=== PATIENT | female | born 1950 | race Caucasian/White ===

== ENCOUNTER 2017-05-21 10:00 | Outpatient (RCR) | payer MEDICARE, OTHER, SELFPAY ==
--- NOTE | 2017-04-25 16:49 | HP.PTEVAL_ITS ---
Patient's Visit Information JASE FARRIS is a 66 year old F referred to Physical Therapy by Sudheer Cordero DO with a diagnosis of C56,C67 LEFT SIDED RADICULOPATHY. Date of Evaluation: 04/25/17 Physical Therapist: Poonam Sahu - Visit Plan Frequency: 2-3x /Week Duration: 4-6 Weeks Plan: CERVICAL AND LEFT SHOULDER US AND STM. POSTURE CORRECTION/STRENGTHENING. CERVICAL AND LEFT SHOULDER A/AA ROM. LEFT UE STRENGTHEING. CERVICAL ISOMETRICS. - Subjective Subjective: Work/Leisure: RETIRED. Disability: NO. Present symptoms: CEZAR NECK PAIN LEFT > RIGHT, LEFT ARM. NO NUMBNESS OR TINGLING. PATIENT REPORTS HER LEFT SHOULDER IS CLICKING AND DR. CORDERO TOLD HER IT IS PROBABLY FROM COMPENSATING WITH THE RIGHT ARM. Present since: ABOUT 6 MONTHS AGO. Pain Scale : WORST 8/10, LEAST 5/10. Currently: 7/10. WORSENING. Commenced as a result of: NO APPARENT REASON. Symptoms at onset: NECK. Worse: EVERYTHING. Better: HOT SHOWER HELPS A LITTLE BUT NOTHING ELSE. Disturbed sleep: YES. Previous history/Previous treatment: NO CHIROPRACTOR. NO NECK OR SHOULDER SURGERY. CORTISONE INJECTION LEFT SHOULDER ONCE AND DX OF DDD. WENT TO ED ABOUT A MONTH AGO AND THEN FOLLOW UP WITH DR. CORDERO. Gait: NO FALLS. INTERMITTENT CLUTSY DOESN'T FEEL STABLE AND FEET FEEL HEAVY. THIS HAS BEEN OCCURING A FEW WEEKS BUT ONLY SINCE TOOK FIRST DOSE TRAMADOL. Accidents: NO. Unexplained weight loss: NO. Imaging: MULTILEVEL DEGENERATIVE CHANGES ON NECK X-RAY. CAT SCAN PENDING. PATIENT REFUSES MRI. PMH: SPLEENECTOMY AGE 20. HEART CONDITION - HEART SKIPS. COPD. HX OF LEFT SHOULDER PAIN 2013. OTHER : PATIENT REPORTS IT IS A BIG EFFORT TO TAKE A SHOWER AND DO HER HAIR. SHE HASN'T BEEN ABLE TO LIFT HER LEFT ARM SINCE ABOUT 04/09/17. STATES DR. CORDERO SAID IT IS COMING FROM HER NECK AND NOT HER SHOULDER. STATES DR. CORDERO TOLD HER THERE ISN'T ANYTHING HE CAN DO FOR HER AND SHE NEEDS TO GO TO A NECK SPECIALIST. STATES DR. CORDERO TOLD HER SHE COULD TRY PT AND PAIN MGMT FOR INJECTIONS BUT THEY ARE ALL [place]. STATES ER DOCTOR TOLD HER SHE NEEDS NECK SURGERY. - Objective Sitting Posture: POOR. Active Correction of posture: NE. Motor deficit: RIGHT UE WFL BUT LEFT SHOULDER IS VERY WEAK. 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 LEFT ELBOW FLEX 4 -/5, ELBOW EXT 4/5. Sensory deficit: CEZAR UE LIGHT TOUCH SENSATION IS INTACT AND SYMMETRICAL. ROM deficit: 60 DEG ACTIVE LEFT SHOULDER FLEX AND 40 DEG ACTIVE ABD. FULL PROM LEFT SHOULDER. Reflexes: UNABLE TO ELICIT CEZAR UE DTR'S BUT PATIENT VERY GUARDED AND COLD. CERVICAL MVMT LOSS: FLEX - MIN, PRO - NIL, EXT - MOD TO RAFFAELE, RET - RAFFAELE, RIGHT ROT - MIN, LEFT ROT - MOD, RIGHT SB - MOD, LEFT SB - MOD TO RAFFAELE. Postural strength: POOR. Palpation: PATIENT IS NOT ACUTELY TENDER OVER THORACIC OR CERVICAL SPINOUS PROCESS'S. SHE HAS LEFT CERVICAL MUSCULATURE TIGHTNESS GREATER THAN RIGHT BUT SHE IS VERY TENDER IN THE LATERAL SHOULDER REGION DISTAL TO THE AC JOINT. OTHER: CERVICAL TX TESTING HAS NO EFFECT. - Goals Goal 1:: DECREASE C/O NECK PAIN Goal Time Frame: 4-6 Weeks Goal 2:: DECREASE C/O LEFT UE SX'S. Goal Time Frame: 4-6 Weeks Goal 3:: IMPROVE SITTING, STANDING, WALKING, REACHING, PUSHING, PULLING, LIFTING , ADL AND LEISURE FUNCTION Goal Time Frame: 4-6 Weeks Goal 4:: INSTRUCT IN PROPHYLAXIS - Rehabilitation Potential Rehabilitation Potential: Fair - Anticipated Interventions Patient/Client Instruction: Educate patient on: Condition, Plan of Care, Risk Factors, Benefits of Fitness Program For the Purpose of:: To improve self management Therapeutic Exercise to Include: Strength training, Postural training, Flexibilty training, Active ROM, Scapular Strength/Stabilization For the Purpose of:: To improve ability of physical actions for home/community/ work/leisure Manual Therapy Techniques to Include: Soft tissue mobilization For the Purpose of:: To decrease pain, To decrease swelling/inflammation, To increase ROM Ultrasound (thermal/non thermal): Yes For the Purpose of:: To decrease pain, To decrease swelling/inflammation Thank you for the opportunity to evaluate your patient. For Medicare and Medicare HMO plans, please review the plan of care and approve it. It will need to be FAXED BACK to us at [phone] for Medicare purposes. Please let me know if there are questions or concerns regarding this plan of care. Physician Signature: Date:
--- NOTE | 2017-05-14 13:57 | HP.PTREVAL_ITS ---
Sudheer Cordero, DO, It has been my pleasure to treat JASE FARRIS over the last 7 visits for C56,C67 LEFT SIDED RADICULOPATHY. Please see the progress note below for an update on the physical therapy plan of care! Subjective: Cont second half of rx session. Objective/Function: Pt did fairly well with ex's - minor c/o with most. States she is not doing her HEP. Plan Plan: CERVICAL AND LEFT SHOULDER US AND STM. POSTURE CORRECTION/STRENGTHENING. CERVICAL AND LEFT SHOULDER A/AA ROM. LEFT UE STRENGTHEING. CERVICAL ISOMETRICS. Goals Goal 1:: DECREASE C/O NECK PAIN Goal Time Frame: 4-6 Weeks Goal 2:: DECREASE C/O LEFT UE SX'S. Goal Time Frame: 4-6 Weeks Goal 3:: IMPROVE SITTING, STANDING, WALKING, REACHING, PUSHING, PULLING, LIFTING , ADL AND LEISURE FUNCTION Goal Time Frame: 4-6 Weeks Goal 4:: INSTRUCT IN PROPHYLAXIS Anticipated Interventions Patient/Client Instruction: Educate patient on: Condition, Plan of Care, Risk Factors, Benefits of Fitness Program For the Purpose of:: To improve self management Therapeutic Exercise to Include: Strength training, Postural training, Flexibilty training, Active ROM, Scapular Strength/Stabilization For the Purpose of:: To improve ability of physical actions for home/community/ work/leisure Manual Therapy Techniques to Include: Soft tissue mobilization For the Purpose of:: To decrease pain, To decrease swelling/inflammation, To increase ROM Ultrasound (thermal/non thermal): Yes For the Purpose of:: To decrease pain, To decrease swelling/inflammation Please do not hesitate to contact me at [phone] by phone or Fax: if you have questions or concerns regarding this new plan of care! Sincerely, Poonam Sahu
--- NOTE | 2017-05-21 11:03 | HP.PTDCSUM_ITS ---
HP - PT D/C Summary It has been my pleasure to treat JASE FARRIS under orders from Sudheer Cordero DO, for the diagnosis of C56,C67 LEFT SIDED RADICULOPATHY for a total of 9 visit(s). Discharge Date: 05/21/17 Please see the following information for a summary of their discharge status. - Subjective Subjective: PATIENT REPORTS HER LEFT SHOULDER IS 100% BETTER. QUESTIONING IF SHE SHOULD GO THROUGH WITH CONSULT WITH DR. JORDANA MCNEILL FOR HER NECK BECAUSE THEY CALLED TO SCHEDULE HER. STATES SHE STILL HAS A HEADACHE THAT IS OVER THE RIGHT EYE AND SHE DOESN'T KNOW WHY. REPORTS THAT SHE WANTS TO TRY THE EX'S ON HER OWN AT THIS POINT AND IF SHE HAS PROBLEMS SHE WILL COME BACK. - Pain KELLY Pain Intensity (Out of 10): 2 L shldr Pain Intensity (Out of 10): 0 - Overall Improvement % Improvement: 100 - Objective Objective/Function: PATIENT CONTINUES TO HAVE SIGNIFICANT WEAKNESS IN HER POSTURAL MUSCULATURE AND THE LEFT ROTATOR CUFF BUT NO C/O PAIN WITH TESTING TODAY. UPON EXAM: Motor deficit: RIGHT UE WFL BUT LEFT SHOULDER STILL HAS WEAKNESS. 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 RIGHT SHOULDER FLEX 4-/5, ABD 3+/5, IR 4-/5, ER 2+/5 , ELBOW FLEX 4/5, ELBOW EXT 4/5. Sensory deficit: CEZAR UE LIGHT TOUCH SENSATION IS INTACT AND SYMMETRICAL. ROM deficit: LEFT SHOULDER AROM IS WFL BUT IN SUPINE PASSIVE FLEX AT 165 DEG AND ABD AT 145 DEG PROVOKES PAIN WITH AN EMPTY END-FEEL. CERVICAL MVMT LOSS: FLEX - MIN, PRO - NIL, EXT - MOD, RET - MOD, RIGHT ROT - MIN, LEFT ROT - MOD, RIGHT SB - MOD, LEFT SB - MOD. Postural strength: POOR. I RECOMMEND FOLLOW UP WITH DR. SHEPARD FOR HEADACHE/RIGHT EYE PAIN AND CONSULT QUESTIONS ABOUT DR. MCNEILL. PATIENT IS AGREEABLE. - Goals Goal 1:: DECREASE C/O NECK PAIN Goal Progress: Goal Met Goal 2:: DECREASE C/O LEFT UE SX'S. Goal Progress: Goal Met Goal 3:: IMPROVE SITTING, STANDING, WALKING, REACHING, PUSHING, PULLING, LIFTING , ADL AND LEISURE FUNCTION Goal Progress: Goal Met Goal 4:: INSTRUCT IN PROPHYLAXIS Goal Progress: Goal Met - Plan Plan: D/C TO HEP AND FOLLOW UP WITH DR. SHEPARD. - D/C Information If there are questions or concerns regarding this patient's physical therapy, please feel free to call me at [phone]. Thank you for the referral of this patient. Sincerely, Poonam Sahu
== END 2017-05-21 19:00 | disposition home or self-care (01) ==
LOC: PT 10:00
PROVIDERS: Family Provider Family Medicine Geriatric Medicine; PCP Family Medicine Geriatric Medicine; Visit Provider Orthopaedic Surgery
DX: S43.402D Unspecified sprain of left shoulder joint, subsequent encounter (principal)
CPT/HCPCS: 97035; 97110; 97162; 97530

== ENCOUNTER → 2017-06-26 08:58 | Outpatient (CLI) | payer MEDICARE, OTHER, SELFPAY ==
--- NOTE | 2017-06-26 08:59 | HPBI_ITS ---
MAMMOGRAPHY - BILATERAL SCREENING REASON FOR EXAM: Female, 67 years old. Routine annual screening examination. PERTINENT HISTORY: Sister with breast cancer. Grandmother with breast cancer. TECHNIQUE: Digital bilateral breast yadiel (3D mammographic acquisition) in the CC and MLO projections. 2-D mediolateral oblique (MLO) and craniocaudad (CC) views of both breasts were obtained. CAD: Full Field Digital Mammography with Computer Added Detection was performed. COMPARISON: Comparison is made with prior study dated June 01, 2016 and March 02, 2015. FINDINGS: Breast Composition: The breasts are heterogeneously dense, which may obscure small masses. There are no dominant masses or suspicious calcifications. No other significant abnormalities are identified. There has been no significant change since the prior study. HPBI/SCREENING MAMM (CAD), BILAT IMPRESSION: Stable bilateral screening mammogram. Yearly follow-up mammogram recommended. (A) ASSESSMENT CATEGORY: BIRADS Category 1: Negative. A letter regarding these results will be sent to the patient by the facility within 30 days. Approximately 10% of breast cancers are not detected by mammography. A normal mammogram should not delay biopsy of a clinically suspicious abnormality. [id number] Electronically Signed: Graham Benjamin MD at 10:06 EST Tel [phone], Service support ,
== END ==
PROVIDERS: Family Provider Family Medicine Geriatric Medicine; PCP Family Medicine Geriatric Medicine; Visit Provider Family Medicine Geriatric Medicine
DX: Z12.31 Encounter for screening mammogram for malignant neoplasm of breast (principal)
CPT/HCPCS: 77063; 77067

== ENCOUNTER → 2017-07-26 15:53 | Outpatient (CLI) | payer MEDICARE, OTHER, SELFPAY ==
[2017-07-26 18:06] LABS: Erythrocyte Sedimentation Rate 10 mm/hr (0-30)
[2017-07-26 18:15] LABS: Absolute Neutrophil Count 9.5 X10^3/uL (2.0-7.7); Basophil# 0.08 X10^3/uL; Basophil% 0.5 % (0-1); Eosinophil# 0.13 X10^3/uL; Eosinophils% 0.8 % (0-5); Hemoglobin 13.5 g/dl (12.0-15.0); Lymphocyte % 30.1 % (19-41); Mean Corp Hgb Conc 32.9 g/gl (32-36); Mean Corpuscular Hgb 30.7 pg (27.0-32.0); Mean Corpuscular Volume 93.2 fL (81-99); Mean Platelet Vol. 9.8 fl (6.2-12.0); Monocyte# 1.91 X10^3/uL; Monocyte% 11.5 % (0-10); Neutrophil # 9.45 X10^3/uL (2.7-7.7); Platelet Count 541 K/mm3 (150-450); RBC Distribution Width CV 14.8 % (11.6-14.6); RBC Distribution Width SD 48.9 fl (35.1-43.9); White Blood Count 16.6 K/mm3 (4.4-11.0)
[2017-07-26 18:19] LABS: AST(SGOT) 21 U/L (15-37); Alanine Aminotransfer ALT/SGPT 21 U/L (13-56); Albumin, Serum 3.6 g/dL (3.2-5.0); Alkaline Phosphatase 72 U/L (45-117); Anion Gap 6 (5-15); BUN 17 mg/dL (7-18); BUN/Creat Ratio 20.7 RATIO (10-20); CRP < 2.90 mg/L (0.0-3.0); Calcium,Total 9.4 mg/dL (8.5-10.1); Chloride 105 mmol/L (98-107); Cholesterol 201 mg/dL (200); Creatinine, Serum 0.82 mg/dL (0.55-1.02); Differential Indicated SCAN CRITERIA MET; EST Glomerular Filtration Rate 73 mL/min (>60); Est Glom Filt Rate - Afr Amer 89 mL/min (>60); Globulin 3.7 g/dL (2.2-4.2); Glucose 79 mg/dL (74-106); High Density Lipoprotein 49 mg/dL; POSITIVE COUNT NO; POSITIVE DIFFERENTIAL YES; POSITIVE MORPHOLOGY NO; Potassium 3.9 mmol/L (3.5-5.1); Protein, Total 7.3 g/dL (6.4-8.2); Sodium Level 141 mmol/L (136-145); Thyroid Stim Hormone (TSH) 1.49 uIU/mL (0.358-3.74); Triglycerides 126 mg/dL; Very Low Density Lipoprotein 25 mg/dL (5-40)
[2017-07-26 19:50] LABS: Differential Comment SCANNED; Platelet Estimate SLT INC (ADEQ)
[2017-07-27 11:59] LABS: Vitamin D,25 Hydroxy 58.2 ng/mL (29.95-100.01)
[2017-07-28 09:20] LABS: Hep C Antibodies <0.1 s/co ratio (0.0-0.9)
[2017-07-30 14:30] LABS: Pathologist Review Reviewed
== END ==
PROVIDERS: Family Provider Family Medicine Geriatric Medicine; PCP Family Medicine Geriatric Medicine; Visit Provider Family Medicine Geriatric Medicine
DX: Z00.00 Encounter for general adult medical examination without abnormal findings (principal); E78.4 Other hyperlipidemia; M79.609 Pain in unspecified limb; Z13.89 Encounter for screening for other disorder
CPT/HCPCS: 36415; 80053; 80061; 82306; 84443; 85025; 85652; 86140; 86803

== ENCOUNTER → 2017-07-31 09:20 | Outpatient (CLI) | payer MEDICARE, OTHER, SELFPAY ==
--- NOTE | 2017-07-31 09:26 | BD_ITS ---
STUDY: DUAL ENERGY X-RAY ABSORPTIOMETRY / DXA REASON FOR EXAM: Female, 67 years old. The patient is postmenopausal. Loss of 1.25 inches. TECHNIQUE: Bone Mineral Density (BMD) measurements of lumbar spine and bilateral hips were obtained. COMPARISON: None. FINDINGS: Lumbar Spine (L1-L4): g/cm2 (1.011) / T-score (-1.4) / Z-score (0.2) Findings are suggestive of osteopenia with a moderate fracture risk. Left Femur Total: g/cm2 (0.867) / T-score (-1.1) / Z-score (0.2) Left Femoral Neck: g/cm2 (0.779) / T-score (-1.9) / Z-score (-0.3) Right Femur Total: g/cm2 (0.891) / T-score (-0.9) / Z-score (0.4) Right Femoral Neck: g/cm2 (0.805) / T-score (-1.7) / Z-score (-0.1) BD/Dexa Bone Density Study IMPRESSION: The patient is considered osteopenic as outlined below according to World Mino Organization (WHO) criteria with a moderate fracture risk. Reference Information: The T-score is the number of standard deviations above or below the standard which is normal for young adults at their peak bone mineral density. The World Health Organization (WHO) interprets the T-scores as follows: Above -1 Normal bone density Between -1 and -2.5 Osteopenia Equal to / or below -2.5 Osteoporosis As a practical clinical guideline, osteopenia may be graded as follows: Mild -1 through -1.5 Moderate -1.6 through -2.0 Severe -2.1 through -2.4 The Z-score is the number of standard deviations above or below age-matched controls. A Z-score of less than -1.5 would be considered abnormal. References: 1. NIH Osteoporosis and Related Bone Diseases http://www.osteo.org 2. International Society for Clinical Densitometry http://www.iscd.org 3. National Osteoporosis Foundation http://www.nof.org Electronically Signed: Graham Benjamin MD at 14:43 EDT Tel [phone], Service support ,
== END ==
PROVIDERS: Family Provider Family Medicine Geriatric Medicine; PCP Family Medicine Geriatric Medicine; Visit Provider Family Medicine Geriatric Medicine
DX: Z78.0 Asymptomatic menopausal state (principal)
CPT/HCPCS: 77080

== ENCOUNTER 2017-08-01 15:38 | Emergency (ER) | payer MEDICARE, OTHER, SELFPAY ==
[2017-08-01 15:39] VITALS: BP 109/64; PULSE 85; RESP 16; TEMP 36.4; O2SAT 92; BMI 22.4
--- NOTE | 2017-08-01 16:19 | CT_ITS ---
STUDY: CT BRAIN WITHOUT CONTRAST REASON FOR EXAM: Female, 67 years old. Off balance. Facial numbness. RADIATION DOSAGE (If Supplied By Facility): CTDIvol = ( 60.81 ) mGy, DLP = ( 998.67 ) mGycm TECHNIQUE: Transaxial CT imaging of the brain was performed without administration of intravenous contrast material. Individualized dose optimization techniques were used for this CT. COMPARISON: March 27, 2014. FINDINGS: Normal soft tissue structures. Normal calvarium. There is disproportionate enlargement of the lateral and third ventricles, as compared to the extra-axial spaces. The findings suggest normal pressure hydrocephalus (NPH). The ventricles are noticeably enlarged when compared to the previous examination. Normal white matter tracts of the cerebral hemispheres. Normal basal ganglia and thalami. Normal brainstem. Normal cerebellum. There is no intracranial hemorrhage. There are no findings of an acute ischemic infarction. Normal visualized paranasal sinuses. CT/Brain/Head without Contrast IMPRESSION: Question NPH. Electronically Signed: Alexandre Almanza DO at 17:05 EDT Tel [phone], Service support ,
[2017-08-01 16:35] LABS: Bacteria 0 SEEN /hpf (None Seen); Red Blood Cells-Urine 0 SEEN /hpf (0-5)
[2017-08-01 16:43] LABS: Color, Urine Yellow (Yellow); Glucose, Dipstick Normal (Normal); Ketone-Dipstick Negative (Negative); Leukocyte Esterase-Dipstick 25 /ul (Negative); Nitrite-Dipstick Negative (Negative); Occult Blood-Urine 25 /ul (Negative); Protein-Dipstick Negative (Negative); Specific Gravity, Urine 1.025 (1.002-1.030); Urine Bilirubin Dipstick Negative (Negative); Urine Clarity Clear (Clear); Urine Urobilinogen Normal (Normal)
[2017-08-01 16:54] LABS: Absolute Lymphocyte Count 4.12 X10^3/ul (0.83-4.51); Absolute Neutrophil Count 7.9 X10^3/uL (2.0-7.7); Basophil# 0.09 X10^3/uL; Basophil% 0.6 % (0-1); Eosinophil# 0.14 X10^3/uL; Hematocrit 40.6 % (37-47); Hemoglobin 13.5 g/dl (12.0-15.0); Lymphocyte # 4.12 X10^3/ul (4.0); Mean Corp Hgb Conc 33.3 g/gl (32-36); Mean Corpuscular Volume 93.1 fL (81-99); Mean Platelet Vol. 9.1 fl (6.2-12.0); Monocyte# 1.95 X10^3/uL; Monocyte% 13.7 % (0-10); Neutrophil # 7.87 X10^3/uL (2.7-7.7); Neutrophil % 55.4 % (47-70); Platelet Count 527 K/mm3 (150-450); RBC Distribution Width SD 49.7 fl (35.1-43.9); Red Blood Count 4.36 M/mm3 (4.2-5.4); White Blood Count 14.2 K/mm3 (4.4-11.0)
[2017-08-01 16:55] LABS: Differential Indicated SCAN CRITERIA MET; POSITIVE COUNT NO; POSITIVE DIFFERENTIAL YES; POSITIVE MORPHOLOGY NO
[2017-08-01 16:59] LABS: Anion Gap 5 (5-15); BUN 21 mg/dL (7-18); BUN/Creat Ratio 28.2 RATIO (10-20); Calcium,Total 8.2 mg/dL (8.5-10.1); Chloride 104 mmol/L (98-107); Creatinine, Serum 0.74 mg/dL (0.55-1.02); EST Glomerular Filtration Rate 82 mL/min (>60); Est Glom Filt Rate - Afr Amer 100 mL/min (>60); Estimated Creatinine Clearance 48.45 ml/min; Glucose 90 mg/dL (74-106); Sodium Level 141 mmol/L (136-145)
[2017-08-01 17:05] LABS: Mucous, Urine RARE /hpf (<or=2+); Squamous Epithelial Cells - UA 0-5 SEEN /hpf (5-10); White Blood Cells 0-5 SEEN /hpf (0-5)
[2017-08-01 17:25] VITALS: BP 110/82; BP 111/66; BP 114/81; PULSE 66; PULSE 83; PULSE 94
[2017-08-01 17:40] VITALS: BP 111/66; PULSE 66; RESP 18; O2SAT 99
[2017-08-01 19:04] VITALS: BP 109/72; PULSE 84; RESP 18; O2SAT 99
--- NOTE | 2017-08-01 19:19 | ED.DCSUM_ITS ---
- ER Visit Summary Date of Service: 08/01/17 Chief Complaint: Off balance History of Present Illness: The patient is a [address] Celeste. She reports that she has been off balance for the past 3-4 months. This seems to be gradually worsening. reports that she takes baby steps. Patient reported that today she fell when she lost her balance. She did hit the right side of her maxilla. She did not have loss of consciousness. She denies any other injuries. Patient complains of numbness to her maxilla bilaterally that began today. She also reports that she has tingling in her fingertips bilaterally. Finally, she reports that her legs have been aching for the past 2 months. She denies any other complaints. Physical Examination: Vitals: Stable. Afebrile. General: Well-nourished and well-developed. Head: Normocephalic atraumatic. Neck: Supple, no lymphadenopathy. No JVD. Nontender. Cardiovascular: Regular rate and rhythm. No murmurs. Respiratory: No respiratory distress. Clear to auscultation bilaterally. Abdominal: Soft, nontender, nondistended, normal bowel sounds. No guarding, rebound, or peritoneal signs. Back: Nontender. Extremities: Nontender, no edema. Skin: Normal color, no rash. Neurologic: Alert and oriented ?3. Cranial nerves II through XII are intact. Normal strength and sensation. Psych: Normal affect. Test Results: CBC is more for white count of 14.2, platelets of 527, and monocytes of 14. Chem-7 is more for BUN of 21 and calcium of 8.2. UA is negative. CT brain shows normal pressure hydrocephalus. Emergency Department Course and Treatment: Patient is resting comfortably without complaint. Treatment Plan: Patient was discussed with Dr. Cerna, a neurosurgeon at [facility], her hospital of choice, who feels that this is not classic for normal pressure hydrocephalus. He states that he would be happy to see her, but also suggested that she see a neurologist in [place]. Patient was discussed with Dr. Kilpatrick who would also be happy to see her. The patient is scheduled for an open MRI in 2 days as she is claustrophobic. After discussion with Dr. Kilpatrick and Dr. Cerna the patient is instructed to try to change this back to a closed MRI and a given prescription for a single 5 mg Valium. Disposition: To home in improved and stable condition. Impression: 1. Normal pressure hydrocephalus. This note was generated with [employer] dictation software. It may contain incorrect words, spelling, and punctuation that were not noted in review of the chart prior to signing ED Disposition - Plan for ED Patient: Disposition: Home or Assisted Living Chief Complaint: Neuro S/Sx Prescriptions: Diazepam [Valium] 5 mg PO X1 #1 tablet Referrals: Kwaku Celeste Chi, MD [Primary Care Provider] - Misbah Kilpatrick MD [STAFF PHYSICIAN] - Additional Instructions: Follow-up with Dr. Cerna as soon as possible. He is a neurosurgeon at [facility] His phone number is .
[2017-08-01 19:28] VITALS: BP 109/72; PULSE 84; RESP 18; O2SAT 99
== END 2017-08-01 19:29 | disposition home or self-care (01) ==
PROVIDERS: Emergency Provider Emergency Medicine; Family Provider Family Medicine Geriatric Medicine; PCP Family Medicine Geriatric Medicine
DX: G91.2 (Idiopathic) normal pressure hydrocephalus (principal); J44.9 Chronic obstructive pulmonary disease, unspecified; E78.00 Pure hypercholesterolemia, unspecified; I49.9 Cardiac arrhythmia, unspecified; Z79.899 Other long term (current) drug therapy; Z72.0 Tobacco use
CPT/HCPCS: 70450; 80048; 81001; 85025; 99284; A4216

== ENCOUNTER 2017-08-06 06:12 | Emergency (ER) | payer MEDICARE, OTHER, SELFPAY ==
[2017-08-06 06:15] VITALS: BP 126/82; PULSE 66; RESP 19; TEMP 36.6; O2SAT 97; BMI 22.6
--- NOTE | 2017-08-06 06:56 | EKG12_ITS ---
Test Reason : CP Blood Pressure : / mmHG Vent. Rate : 069 BPM Atrial Rate : 069 BPM P-R Int : 174 ms QRS Dur : 086 ms QT Int : 380 ms P-R-T Axes : 057 029 049 degrees QTc Int : 407 ms Normal sinus rhythm Normal ECG Confirmed by CARRIE MUNOZ, ROZINA ([id number]), desk editor DEEDEE MCNEILL ([id number]) on 08/07/2017 3:24:54 PM Referred By: ALEXANDR Confirmed By:ROZINA BUTLER MD
--- NOTE | 2017-08-06 06:56 | RAD_ITS ---
STUDY: X-RAY CHEST REASON FOR EXAM: Female, 67 years old. Dizziness for 3 weeks TECHNIQUE: Single frontal view of the chest. COMPARISON: 05/21/2015 FINDINGS: The lungs are clear and expanded. There is no demonstrated pleural abnormality. Normal size heart. Normal mediastinum and celestina. Normal visualized pulmonary arteries. Normal visualized aortic arch and descending thoracic aorta. Normal visualized thoracic spine. Left shoulder calcific tendinitis. There is no demonstrated abnormality of the visualized soft tissue structures of the upper abdomen. RAD/Chest 1 View (Portable) IMPRESSION: No acute pulmonary findings. Electronically Signed: Daryn English MD at 7:18 EDT Tel , Service support ,
[2017-08-06 07:12] LABS: Absolute Neutrophil Count 6.4 X10^3/uL (2.0-7.7); Basophil# 0.07 X10^3/uL; Basophil% 0.5 % (0-1); Eosinophil# 0.24 X10^3/uL; Eosinophils% 1.7 % (0-5); Hematocrit 41.8 % (37-47); Hemoglobin 13.6 g/dl (12.0-15.0); Lymphocyte % 38.1 % (19-41); Mean Corp Hgb Conc 32.5 g/gl (32-36); Mean Corpuscular Hgb 29.8 pg (27.0-32.0); Mean Corpuscular Volume 91.7 fL (81-99); Mean Platelet Vol. 9.1 fl (6.2-12.0); Monocyte# 2.01 X10^3/uL; Monocyte% 14.2 % (0-10); Neutrophil # 6.41 X10^3/uL (2.7-7.7); Neutrophil % 45.3 % (47-70); Platelet Count 536 K/mm3 (150-450); RBC Distribution Width CV 14.4 % (11.6-14.6); Red Blood Count 4.56 M/mm3 (4.2-5.4); White Blood Count 14.2 K/mm3 (4.4-11.0)
[2017-08-06 07:14] LABS: Differential Indicated SCAN CRITERIA MET; POSITIVE COUNT NO; POSITIVE DIFFERENTIAL YES; POSITIVE MORPHOLOGY NO
[2017-08-06 07:20] VITALS: BP 134/60; PULSE 58; RESP 16
[2017-08-06 07:21] LABS: Mucous, Urine 0 SEEN /hpf (<or=2+)
[2017-08-06 07:28] LABS: Anion Gap 5 (5-15); BUN 18 mg/dL (7-18); BUN/Creat Ratio 24.5 RATIO (10-20); Calcium,Total 8.7 mg/dL (8.5-10.1); Chloride 106 mmol/L (98-107); Creatinine, Serum 0.74 mg/dL (0.55-1.02); EST Glomerular Filtration Rate 84 mL/min (>60); Est Glom Filt Rate - Afr Amer 101 mL/min (>60); Estimated Creatinine Clearance 48.45 ml/min; Glucose 89 mg/dL (74-106); Potassium 4.4 mmol/L (3.5-5.1); Sodium Level 140 mmol/L (136-145); Thyroid Stim Hormone (TSH) 2.73 uIU/mL (0.358-3.74)
[2017-08-06 07:31] LABS: Color, Urine Yellow (Yellow); Glucose, Dipstick Normal (Normal); Ketone-Dipstick Negative (Negative); Leukocyte Esterase-Dipstick 100 /ul (Negative); Nitrite-Dipstick Negative (Negative); Occult Blood-Urine 10 /ul (Negative); Protein-Dipstick 30 mg/dl (Negative); Urine Bilirubin Dipstick Negative (Negative); Urine Clarity Sl. Cloudy (Clear); Urine Urobilinogen Normal (Normal)
[2017-08-06 07:48] LABS: Bacteria 1+ /hpf (None Seen); Red Blood Cells-Urine 0-5 SEEN /hpf (0-5); Squamous Epithelial Cells - UA 0-5 SEEN /hpf (5-10); White Blood Cells 10-25 SEEN /hpf (0-5)
--- NOTE | 2017-08-06 08:20 | ED.VISSUMM ---
- ER Visit Summary Date of Service: 08/06/17 Chief Complaint: I do not feel right History of Present Illness: The patient is a 67 F that has been feeling unwell for several weeks. She has had nausea, chest pains, depressed mood, and generalized weakness. She has had trouble with her balance but denies vertigo. About 6 days ago, she was in the emergency department. She was diagnosed with normal pressure hydrocephalus and referred for follow-up. She had an outpatient MRI that showed a 2 cm nodule, a left cerebellar pontine mass. She has follow-up with the nurse practitioner regarding this tomorrow and follow-up with neurosurgery in 3 days. She denies any new neurologic symptoms like weakness, numbness, vision changes, speech changes, or new changes with her balance. No fevers. Physical Examination: Afebrile and vital signs unremarkable. Patient has a depressed mood. Alert and oriented. Cranial nerves grossly intact. Moves all extremities, no focal or lateralizing neurologic abnormalities grossly. Heart regular. Lungs clear. Abdomen soft. Skin appears normal. Test Results: EKG showed sinus rhythm at a rate of 69. No sign of acute ischemia or infarction. Chest x-ray showed no acute abnormalities. White count 14.2. Platelets 536. Basic metabolic panel unremarkable. Urinalysis shows signs of UTI. Troponin normal. TSH normal. Emergency Department Course and Treatment: Patient has NPH with a cerebellar pontine mass. She has follow-up with neurosurgery. No acute changes other than she does not feel well. She feels depressed and does not feel that she can wait until later this week to see neurosurgery. I checked for other causes of her symptoms. Her workup was fairly unremarkable, but she does have a UTI. I will treat with Keflex. She is not septic. No fevers. I believe she is appropriate for outpatient care. There were no other findings to explain her symptoms. She does have depression and I think some of this is a grief reaction, appropriate for the situation. She is not suicidal or homicidal. There is no reason for involuntary admission. She declined speaking to a counselor here. She will be discharged with a course of Keflex. Follow-up with her specialist later this week. Return for any new or worsening issues. Treatment Plan: As above Disposition: Discharged Impression: 1. NPH 2. UTI, acute cystitis This note was generated with [employer] software. It may contain incorrect words, spelling, and punctuation that were not noted in review of the chart prior to signing ED Disposition - Plan for ED Patient: Chief Complaint: Chest Pain Referrals: Kwaku Celeste Chi, MD [Primary Care Provider] -
--- NOTE | 2017-08-06 08:24 | ED.DEP ---
ED Disposition - Plan for ED Patient: Chief Complaint: Chest Pain Instructions: ED UTI Cystitis Female Prescriptions: Cephalexin [Keflex] 500 mg PO Q6 7 Days #28 cap Referrals: Kwaku Celeste Chi, MD [Primary Care Provider] - Additional Instructions: Also follow-up with your specialists as scheduled later this week. Return for any new or worsening issues.
[2017-08-06] MEDS: Cephalexin 250 MG Capsule 500 MG PO (08:57)
[2017-08-07 09:56] LABS: Pathologist Review Reviewed
== END 2017-08-06 09:15 | disposition home or self-care (01) ==
PROVIDERS: Emergency Provider Emergency Medicine; Family Provider Family Medicine Geriatric Medicine; PCP Family Medicine Geriatric Medicine
DX: G91.2 (Idiopathic) normal pressure hydrocephalus (principal); N30.00 Acute cystitis without hematuria; F32.9 Major depressive disorder, single episode, unspecified; J44.9 Chronic obstructive pulmonary disease, unspecified; Z79.899 Other long term (current) drug therapy; Z72.0 Tobacco use
CPT/HCPCS: 71045; 80048; 81001; 84443; 84484; 85025; 93005; 96360; 99285; J7030; J7040; A4216

== ENCOUNTER 2017-09-05 19:32 | Emergency (ER) | payer MEDICARE, OTHER, SELFPAY ==
[2017-09-05 19:33] VITALS: BP 175/77; PULSE 82; RESP 18; TEMP 37; O2SAT 96
--- NOTE | 2017-09-05 20:01 | ED.RN ---
193 WHEN ASKING THE PT WAS SHE NEEDED TO BE TREATED FOR,THE PT'S SAID,SHE HAS NPH! WHEN ASKED WHAT THOSE INITIALS MEANT,THE PT'S SAID REAL SARCASTIC,ARE YOU A NURSE EXPLAINED O HIM THAT I AM,BUT DO NOT KNOW EVERY INITIALS OUT THERE.HE EXPLAINED WHAT THE INITIALS STAND FOR.THEN IN SIMPLE TERMS SAID,A HEAD ACHE.PT APPEARED ANNOYED,BUT THEN C/O THE THIRD TIME WE ARE HERE1 EMPATHY GIVEN.
--- NOTE | 2017-09-05 20:02 | CT_ITS ---
STUDY: CT BRAIN WITHOUT CONTRAST REASON FOR EXAM: Female, 67 years old. Headache with vomiting. RADIATION DOSAGE (If Supplied By Facility): CTDIvol = ( 44.99 ) mGy, DLP = ( 779.24 ) mGycm TECHNIQUE: Transaxial CT imaging of the brain was performed without administration of intravenous contrast material. Individualized dose optimization techniques were used for this CT. COMPARISON: 01 August 2017. FINDINGS: Normal soft tissue structures. Normal calvarium. There is prominent ventricular system which comparison to 01 August 2017 is slightly increased with more dilatation within the lateral ventricles, third ventricle and temporal horns. Normal white matter tracts of the cerebral hemispheres. Normal basal ganglia and thalami. Normal brainstem. Normal cerebellum. There is no intracranial hemorrhage. There are no findings of an acute ischemic infarction. Normal visualized paranasal sinuses. CT/Brain/Head without Contrast IMPRESSION: Findings consistent with mild worsening hydrocephalus compared to 01 August 2012. Recommend MRI imaging with sagittal T2 flow study for further characterization and underlying etiology. Other considerations would include NPH in the appropriate clinical setting. Electronically Signed: Dayady Vail DO at 20:51 EDT , Service support ,
--- NOTE | 2017-09-05 20:03 | ED.VISSUMM ---
- ER Visit Summary Date of Service: 09/05/17 Chief Complaint: Nausea and vomiting History of Present Illness: The patient is a 67 F with a history of normal pressure hydrocephalus and which she describes as some sort of small brain tumor that is being treated with radiation next Sunday by a neurosurgeon at [facility]. She has been having nausea throughout the course of her illness but was vomiting today and felt generally weak. No other complaints except for generalized weakness and mild headache. Physical Examination: Vitals are within normal limits. She is actively retching and vomiting. Mucous members are dry. Neck is supple. Peoples equal reactive. Heart tones regular without murmur. Lungs clear bilaterally. Abdomen is soft and nontender. No focal or lateralizing neuro findings. Test Results: Chemistries within normal limits. White count is 18,500. ET scan shows worsening hydrocephalus. Emergency Department Course and Treatment: She was given IV fluids, Zofran, and pain medication. She feels much better. She is no longer vomiting. She does have a leukocytosis here but no symptoms of infection. Her CT scan does reveal somewhat worse hydrocephalus. I discussed the case with Dr. Cerna who is quite familiar with her case. We discussed the CT findings and the leukocytosis. He feels the leukocytosis is most likely secondary to vomiting. She is feeling much better now and would prefer to go home. Dr. Cerna recommended that she be discharged home and see Dr. Renae at in the morning. He will up arrange this. She will return if worse before then. She was given a home pack of Luxora and Zofran. Treatment Plan: See Dr. Renae tomorrow morning Disposition: Home stable condition Impression: She will encounter leukocytosis, initial encounter nausea and vomiting-resolved, worsening hydrocephalus with known history of normal pressure hydrocephalus This note was generated with [employer] dictation software. It may contain incorrect words, spelling, and punctuation that were not noted in review of the chart prior to signing ED Disposition - Plan for ED Patient: Chief Complaint: Headache Instructions: ED Cephalgia Unspecified, ED Nausea Vomiting Additional Instructions: See Dr. Renae tomorrow morning
[2017-09-05] MEDS: 0.9% Normal Saline 1,000 ML 1000 ML IV (20:17)
[2017-09-05] MEDS: Ondansetron 4 MG/2 ML Vial IV (20:17)
[2017-09-05 20:35] LABS: Absolute Lymphocyte Count 2.91 X10^3/ul (0.83-4.51); Absolute Neutrophil Count 13.6 X10^3/uL (2.0-7.7); Basophil# 0.05 X10^3/uL; Basophil% 0.3 % (0-1); Differential Indicated SCAN CRITERIA MET; Eosinophil# 0.02 X10^3/uL; Eosinophils% 0.1 % (0-5); Hematocrit 40.2 % (37-47); Hemoglobin 13.5 g/dl (12.0-15.0); Lymphocyte # 2.91 X10^3/ul (4.0); Lymphocyte % 15.7 % (19-41); Mean Corp Hgb Conc 33.6 g/gl (32-36); Mean Corpuscular Hgb 30.4 pg (27.0-32.0); Mean Corpuscular Volume 90.5 fL (81-99); Mean Platelet Vol. 8.6 fl (6.2-12.0); Monocyte% 10.3 % (0-10); Neutrophil # 13.56 X10^3/uL (2.7-7.7); Neutrophil % 73.4 % (47-70); POSITIVE COUNT NO; POSITIVE DIFFERENTIAL YES; POSITIVE MORPHOLOGY NO; Platelet Count 567 K/mm3 (150-450); RBC Distribution Width CV 14.3 % (11.6-14.6); RBC Distribution Width SD 47.2 fl (35.1-43.9); Red Blood Count 4.44 M/mm3 (4.2-5.4); White Blood Count 18.5 K/mm3 (4.4-11.0)
[2017-09-05 20:41] LABS: Anion Gap 9 (5-15); BUN 17 mg/dL (7-18); BUN/Creat Ratio 25.7 RATIO (10-20); Calcium,Total 9.3 mg/dL (8.5-10.1); Chloride 103 mmol/L (98-107); Creatinine, Serum 0.66 mg/dL (0.55-1.02); EST Glomerular Filtration Rate 94 mL/min (>60); Est Glom Filt Rate - Afr Amer 114 mL/min (>60); Estimated Creatinine Clearance 46.27 ml/min; Glucose 109 mg/dL (74-106); Potassium 3.7 mmol/L (3.5-5.1); Sodium Level 138 mmol/L (136-145)
[2017-09-05 21:29] LABS: Differential Comment SCANNED
[2017-09-05] MEDS: Acetaminophen 325 MG Tablet 650 MG PO (21:35)
[2017-09-05 21:37] VITALS: BP 162/78; PULSE 80; RESP 14; O2SAT 99
[2017-09-05 22:25] VITALS: BP 150/89; PULSE 80; RESP 14; O2SAT 99
[2017-09-05] MEDS: HYDROcodone Bitartrate/Apap 5/325 Tablet PO ×2 (22:26)
[2017-09-05] MEDS: Ondansetron ODT 4 MG Tablet PO (22:27)
[2017-09-06 11:07] LABS: Pathologist Review Reviewed
== END 2017-09-05 22:32 | disposition home or self-care (01) ==
LOC: ED 20:07
PROVIDERS: Emergency Provider Emergency Medicine; Family Provider Family Medicine Geriatric Medicine; PCP Family Medicine Geriatric Medicine
DX: D72.829 Elevated white blood cell count, unspecified (principal); R11.2 Nausea with vomiting, unspecified; G91.2 (Idiopathic) normal pressure hydrocephalus; D49.6 Neoplasm of unspecified behavior of brain; R51 Headache; Z79.899 Other long term (current) drug therapy
CPT/HCPCS: 70450; 80048; 85025; 96374; 99284; J7030; A4216; J2405

== ENCOUNTER 2017-10-12 14:29 | Emergency (ER) | payer MEDICARE, OTHER, SELFPAY ==
[2017-10-12 14:30] VITALS: BP 126/73; PULSE 80; RESP 16; TEMP 37; O2SAT 98; BMI 20.1
[2017-10-12 14:48] VITALS: BP 122/69; PULSE 77; RESP 12; O2SAT 96
--- NOTE | 2017-10-12 14:48 | ED.VISSUMM ---
- ER Visit Summary Date of Service: 10/12/17 Chief Complaint: Acute elevated blood pressure with transient dizziness but now both resolved History of Present Illness: The patient is a 67 F history of normal pressure hydrocephalus in which she had a brain shunt placed at [facility] approximately 1 month ago. She also has a known left sided acoustic neuroma which she is going to undergo surgery in the next week or so. Patient today was in physical rehabilitation and was doing stair climbing on a treadmill when her blood pressure went up and she had mild dizziness. She states that her diastolic blood pressure was 102 she cannot remember the systolic. She denies any headache. She denies any chest pain or shortness of breath. She states she is feeling much better currently. She has not been ill recently. Physical Examination: Well appearing older female. Vital signs are stable afebrile. Currently her blood pressure is 126/73. She does not look septic or toxic. She is in no acute distress. H EENT exam pupils round reactive light. Extra motions are intact. No facial droop. Normal speech. No nystagmus. She has a top of her skull and anterior portion she has a shunt in place. Surgical site looks good. There is no signs of infection or drainage. Neck nontender no lymphadenopathy. Lungs clear to auscultation bilaterally. Heart regular rate and rhythm no murmur. Rate about 80. Abdomen soft nontender. Normal bowel sounds no peritoneal signs. She is moving all 4 extremities. They are neurovascularly intact. Neurologically she is awake and alert. She has no focal motor deficits. No facial droop. Normal speech. 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 Dorsi and plantar flexion intact. Fingertip to nose heel heck within normal limits. She stood up out of bed and walked across the room without any difficulty. No ataxia. Her neurologic exam is unremarkable other than subjective numbness to left side of her face which she has had for 2 weeks and believes is related to her acoustic neuroma. Test Results: None Emergency Department Course and Treatment: Clinically the patient is back to baseline. Her exam is normal. Her blood pressure is normal currently. It will be repeated. She and I discussed I do not feel she needs any testing or imaging she is comfortable with that plan wants to be discharged to home. Treatment Plan: Return to ER feeling worse. Otherwise follow-up with her primary care physician Dr. Quinonez or her neurosurgeon in [place]. Disposition: Discharge Impression: Transient elevated blood pressure of uncertain etiology Dizziness resolved Status post intracranial shunt for normal pressure hydrocephalus History of left sided acoustic neuroma This note was generated with [employer] dictation software. It may contain incorrect words, spelling, and punctuation that were not noted in review of the chart prior to signing ED Disposition - Plan for ED Patient: Chief Complaint: Dizziness Referrals: Kwaku Celeste Chi, MD [Primary Care Provider] -
--- NOTE | 2017-10-12 14:52 | ED.DCSUM_ITS ---
- ER Visit Summary Date of Service: 10/12/17 Chief Complaint: Acute elevated blood pressure with transient dizziness but now both resolved History of Present Illness: The patient is a 67 F history of normal pressure hydrocephalus in which she had a brain shunt placed at [facility] approximately 1 month ago. She also has a known left sided acoustic neuroma which she is going to undergo surgery in the next week or so. Patient today was in physical rehabilitation and was doing stair climbing on a treadmill when her blood pressure went up and she had mild dizziness. She states that her diastolic blood pressure was 102 she cannot remember the systolic. She denies any headache. She denies any chest pain or shortness of breath. She states she is feeling much better currently. She has not been ill recently. Physical Examination: Well appearing older female. Vital signs are stable afebrile. Currently her blood pressure is 126/73. She does not look septic or toxic. She is in no acute distress. H EENT exam pupils round reactive light. Extra motions are intact. No facial droop. Normal speech. No nystagmus. She has a top of her skull and anterior portion she has a shunt in place. Surgical site looks good. There is no signs of infection or drainage. Neck nontender no lymphadenopathy. Lungs clear to auscultation bilaterally. Heart regular rate and rhythm no murmur. Rate about 80. Abdomen soft nontender. Normal bowel sounds no peritoneal signs. She is moving all 4 extremities. They are neurovascularly intact. Neurologically she is awake and alert. She has no focal motor deficits. No facial droop. Normal speech. Equal symmetrical shipping room helper strength. Dorsi and plantar flexion intact. Fingertip to nose heel heck within normal limits. She stood up out of bed and walked across the room without any difficulty. No ataxia. Her neurologic exam is unremarkable other than subjective numbness to left side of her face which she has had for 2 weeks and believes is related to her acoustic neuroma. Test Results: None Emergency Department Course and Treatment: Clinically the patient is back to baseline. Her exam is normal. Her blood pressure is normal currently. It will be repeated. She and I discussed I do not feel she needs any testing or imaging she is comfortable with that plan wants to be discharged to home. Treatment Plan: Return to ER feeling worse. Otherwise follow-up with her primary care physician Dr. Quinonez or her neurosurgeon in [place]. Disposition: Discharge Impression: Transient elevated blood pressure of uncertain etiology Dizziness resolved Status post intracranial shunt for normal pressure hydrocephalus History of left sided acoustic neuroma This note was generated with [employer] dictation software. It may contain incorrect words, spelling, and punctuation that were not noted in review of the chart prior to signing ED Disposition - Plan for ED Patient: Chief Complaint: Dizziness Referrals: Kwaku Celeste Chi, MD [Primary Care Provider] -
--- NOTE | 2017-10-12 14:52 | ED.DEP ---
ED Disposition - Plan for ED Patient: Disposition: Home or Assisted Living Chief Complaint: Dizziness Instructions: ED Dizziness [facility] Referrals: Kwaku Celeste Chi, MD [Primary Care Provider] - 3-5 Days if not improving Additional Instructions: Call and follow-up your doctor as needed. Return to the ER feeling worse.
[2017-10-12 15:18] VITALS: RESP 14
== END 2017-10-12 15:19 | disposition home or self-care (01) ==
LOC: ED 15:17
PROVIDERS: Emergency Provider Emergency Medicine; Family Provider Family Medicine Geriatric Medicine; PCP Family Medicine Geriatric Medicine
DX: R03.0 Elevated blood-pressure reading, without diagnosis of hypertension (principal); R42 Dizziness and giddiness; D33.3 Benign neoplasm of cranial nerves; G91.2 (Idiopathic) normal pressure hydrocephalus; J44.9 Chronic obstructive pulmonary disease, unspecified; Z98.2 Presence of cerebrospinal fluid drainage device; Z79.899 Other long term (current) drug therapy; Z87.891 Personal history of nicotine dependence
CPT/HCPCS: 99282

== ENCOUNTER 2017-11-13 10:30 | Outpatient (RCR) | payer MEDICARE, OTHER, SELFPAY ==
--- NOTE | 2017-08-29 12:49 | HP.PTEVAL_ITS ---
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 Date of Evaluation: 08/29/17 Physical Therapist: Zabrina Franco - Visit Plan Frequency: 2x /Week Duration: 6 Weeks Plan: 2X/ week for 1 week for gait and high level balance activities, LE strengthening with HEP. 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 - Subjective Subjective: Pt came into for Eval and requested to leave by 12;15-12:20 for another appt at the hospital. 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 Noticed that for about a month that her legs were heavy and off balance and then one day shefell and ended up in the ER. [employer] and released some fluid and her legs gotbetter. Her legs dont feel heavy but sometimes they ache. She feels she if off balance like she veers and does not make sharp turns really quick. No dizziness. Stairs she does ok holding onto banister. She has no restrictions and will do the tumor first and then NPH Dr patterson. - Objective Gait: walks with decreased stride and some veering....a little guarded with her walk as well. LE MMT: B hip abd 4/5, B hip flex 4/5, B knee ext 4+/5, B knee flex 4/5, B hip ext 3-/5. Able to walk on heels and toes with some retro LOB walking on heels. FGA: 17 (trouble with walking with EC and looking up and down with gait, turning quickly) - Balance Scores Functional Gait Assessment Score: 17 % Disability: 43.3400 - Goals Goal 1:: I HEP Goal Time Frame: 4-6 Weeks Goal 2:: Increase FGA by 5 points to a score of 22 to decrease fall risk. Goal Time Frame: 4-6 Weeks Goal 3:: Increase LE MMT by 1/2 muscle grade (at time of eval: LE MMT: B hip abd 4/5, B hip flex 4/5, B knee ext 4+/5, B knee flex 4/5, B hip ext 3-/5. Able to walk on heels and toes with some retro LOB ) Goal Time Frame: 4-6 Weeks - Rehabilitation Potential Rehabilitation Potential: Good - Anticipated Interventions Thank you for the opportunity to evaluate your patient. For Medicare and Medicare HMO plans, please review the plan of care and approve it. It will need to be FAXED BACK to us at [phone] for Medicare purposes. Please let me know if there are questions or concerns regarding this plan of care. Physician Signature: Date:
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
--- NOTE | 2017-11-13 18:10 | HP.PTREVAL_ITS ---
Kwaku Celeste, It has been my pleasure to treat JASE FARRIS over the last 13 visits for Ataxia from NPH. Please see the progress note below for an update on the physical therapy plan of care! Subjective: Pt reports that she has not been feeling like herself again since the shint was place and had the gamma knife done. She says that the dizziness comes and goes erick when she lays down and gets up then the ceiling and the room start spinning. She has a hot shooting pain in the L ear (side they did the gamma on). She feels that her balance is not the greatest and she does not feel like herself. Objective/Function: Gait: pt veers with gait.... and setps out to help correct balance. FGA: 20. Pursuit: L eye had some trouble keeping up with the target in horizontal and vertical. Plan Plan: Pt to schedule 2X/ week for 2 weeks to work on VOR exercises and balance Goals Goal 1:: I HEP Goal Time Frame: 4-6 Weeks Goal Progress: still approp. Goal 2:: Increase FGA by 5 points to a score of 22 to decrease fall risk. Goal Time Frame: 4-6 Weeks Goal Progress: Goal Met Goal 3:: Increase LE MMT by 1/2 muscle grade (at time of eval: LE MMT: B hip abd 4/5, B hip flex 4/5, B knee ext 4+/5, B knee flex 4/5, B hip ext 3-/5. Able to walk on heels and toes with some retro LOB ) Goal Time Frame: 4-6 Weeks Goal Progress: Progressing Goal 4:: FGA 26/30 to diminish fall risk Goal Time Frame: 2-4 Weeks Goal Progress: NEW GOAL Goal 5:: Pt feel 75% back to normal Goal Time Frame: 2-4 Weeks Goal Progress: NEW GOAL Anticipated Interventions Please do not hesitate to contact me at [phone] by phone or Fax: if you have questions or concerns regarding this new plan of care! Sincerely, Zabrina Franco
--- NOTE | 2018-01-02 17:19 | HP.PT.NRP ---
HP - Discharge Summary (1) - Patient Information JASE FARRIS was seen in my office for initial evaluation on 08/29/17. The following Plan of Care was established for this patient: Initial Frequency: 2x /Week Initial Duration: 6 Weeks This patient was last seen in our office 11/13/17. Pertinent comments regarding their Physical therapy will appear below: DC PT as pt did not schedule any additional appointments. At this point I will be discontinuing this patient from physical therapy. I would be happy to see this patient again in the future if found appropriate by the physician. Thank you! Zabrina Franco
== END 2017-11-13 19:00 | disposition home or self-care (01) ==
LOC: PT 10:30
PROVIDERS: Family Provider Family Medicine Geriatric Medicine; PCP Family Medicine Geriatric Medicine; Visit Provider Family Medicine Geriatric Medicine
DX: R27.0 Ataxia, unspecified (principal); R03.0 Elevated blood-pressure reading, without diagnosis of hypertension; D33.3 Benign neoplasm of cranial nerves; G91.2 (Idiopathic) normal pressure hydrocephalus; J44.9 Chronic obstructive pulmonary disease, unspecified; Z98.2 Presence of cerebrospinal fluid drainage device; Z79.899 Other long term (current) drug therapy; Z87.891 Personal history of nicotine dependence
CPT/HCPCS: 97110; 97161; 97530; 99282

== ENCOUNTER → 2018-01-24 08:56 | Outpatient (CLI) | payer MEDICARE, OTHER, SELFPAY ==
[2018-01-24 12:22] LABS: Basophil# 0.12 X10^3/uL; Basophil% 0.9 % (0-1); Eosinophil# 0.78 X10^3/uL; Eosinophils% 6.1 % (0-5); Hematocrit 40.3 % (37-47); Mean Corp Hgb Conc 32.3 g/gl (32-36); Mean Corpuscular Hgb 30.7 pg (27.0-32.0); Mean Platelet Vol. 9.6 fl (6.2-12.0); Monocyte# 1.49 X10^3/uL; Monocyte% 11.7 % (0-10); Neutrophil # 7.01 X10^3/uL (2.7-7.7); Neutrophil % 55.2 % (47-70); Platelet Count 632 K/mm3 (150-450); RBC Distribution Width CV 15.1 % (11.6-14.6); RBC Distribution Width SD 51.1 fl (35.1-43.9); Red Blood Count 4.24 M/mm3 (4.2-5.4); White Blood Count 12.7 K/mm3 (4.4-11.0)
[2018-01-24 12:28] LABS: POSITIVE COUNT NO; POSITIVE DIFFERENTIAL NO; POSITIVE MORPHOLOGY NO
[2018-01-24 12:39] LABS: Vitamin D,25 Hydroxy 51.6 ng/mL (29.95-100.01)
[2018-01-24 12:45] LABS: ALB/GLOB Ratio 0.9 RATIO (0.9-2.4); AST(SGOT) 22 U/L (15-37); Alanine Aminotransfer ALT/SGPT 24 U/L (13-56); Albumin, Serum 3.5 g/dL (3.2-5.0); Alkaline Phosphatase 98 U/L (45-117); Anion Gap 4 (5-15); BUN 9 mg/dL (7-18); BUN/Creat Ratio 12.2 RATIO (10-20); Calcium,Total 9.2 mg/dL (8.5-10.1); Chloride 106 mmol/L (98-107); Creatinine, Serum 0.74 mg/dL (0.55-1.02); EST Glomerular Filtration Rate 83 mL/min (>60); Est Glom Filt Rate - Afr Amer 101 mL/min (>60); Globulin 4.1 g/dL (2.2-4.2); Glucose 73 mg/dL (74-106); Potassium 4.3 mmol/L (3.5-5.1); Protein, Total 7.6 g/dL (6.4-8.2); Sodium Level 140 mmol/L (136-145); Thyroid Stim Hormone (TSH) 2.49 uIU/mL (0.358-3.74)
== END ==
PROVIDERS: Family Provider Family Medicine Geriatric Medicine; PCP Family Medicine Geriatric Medicine; Visit Provider Family Medicine Geriatric Medicine
DX: E55.9 Vitamin D deficiency, unspecified (principal); R53.83 Other fatigue
CPT/HCPCS: 36415; 80053; 82306; 84443; 85025

== ENCOUNTER → 2018-06-11 14:57 | Outpatient (CLI) | payer MEDICARE, OTHER, SELFPAY ==
[2018-06-05 09:54] VITALS: BMI 20.1
[2018-06-11 15:51] LABS: BUN 15 mg/dL (7-18); Creatinine, Serum 0.77 mg/dL (0.55-1.02); EST Glomerular Filtration Rate 79 mL/min (>60); Est Glom Filt Rate - Afr Amer 96 mL/min (>60)
== END ==
PROVIDERS: Family Provider Family Medicine Geriatric Medicine; PCP Family Medicine Geriatric Medicine
DX: D33.3 Benign neoplasm of cranial nerves (principal)
CPT/HCPCS: 36415; 82565; 84520

== ENCOUNTER → 2018-07-04 08:38 | Outpatient (CLI) | payer MEDICARE, OTHER, SELFPAY ==
[2018-06-05 09:54] VITALS: BMI 20.1
--- NOTE | 2018-07-04 08:44 | BI_ITS ---
MAMMOGRAPHY - BILATERAL SCREENING REASON FOR EXAM: Female, 68 years old. Routine annual screening examination. PERTINENT HISTORY: Sister with breast cancer. Grandmother with breast cancer. TECHNIQUE: Digital bilateral breast yadiel (3D mammographic acquisition) in the CC and MLO projections. 2-D mediolateral oblique (MLO) and craniocaudad (CC) views of both breasts were obtained. CAD: Full Field Digital Mammography with Computer Added Detection was performed. COMPARISON: Comparison is made with prior study dated June 26, 2017 and June 01, 2016. FINDINGS: Breast Composition: The breasts are heterogeneously dense, which may obscure small masses. There are no dominant masses or suspicious calcifications. No other significant abnormalities are identified. There has been no significant change since the prior study. BI/SCREENING MAMM (CAD), BILAT IMPRESSION: Stable bilateral screening mammogram. Yearly follow-up mammogram recommended. (A) ASSESSMENT CATEGORY: BIRADS Category 1: Negative. A letter regarding these results will be sent to the patient by the facility within 30 days. Approximately 10% of breast cancers are not detected by mammography. A normal mammogram should not delay biopsy of a clinically suspicious abnormality. [id number] Electronically Signed: Graham Benjamin, at 10:23 EDT , Service support ,
== END ==
PROVIDERS: Family Provider Family Medicine Geriatric Medicine; PCP Family Medicine Geriatric Medicine; Referring Provider Nurse Practitioner Women's Health; Visit Provider Nurse Practitioner Women's Health
DX: Z12.31 Encounter for screening mammogram for malignant neoplasm of breast (principal); Z80.3 Family history of malignant neoplasm of breast
CPT/HCPCS: 77063; 77067

== ENCOUNTER → 2018-08-19 14:15 | Outpatient (CLI) | payer MEDICARE, OTHER, SELFPAY ==
[2018-06-05 09:54] VITALS: BMI 20.1
[2018-08-19 16:30] LABS: Vitamin D,25 Hydroxy 57.6 ng/mL (29.95-100.01)
[2018-08-19 16:31] LABS: AST(SGOT) 25 U/L (15-37); Alanine Aminotransfer ALT/SGPT 26 U/L (13-56); Albumin, Serum 3.7 g/dL (3.2-5.0); Alkaline Phosphatase 79 U/L (45-117); Anion Gap 6 (5-15); BUN 12 mg/dL (7-18); BUN/Creat Ratio 14.5 RATIO (10-20); Calcium,Total 8.9 mg/dL (8.5-10.1); Chloride 105 mmol/L (98-107); Creatinine, Serum 0.83 mg/dL (0.55-1.02); EST Glomerular Filtration Rate 72 mL/min (>60); Est Glom Filt Rate - Afr Amer 88 mL/min (>60); Globulin 3.8 g/dL (2.2-4.2); Glucose 88 mg/dL (74-106); Potassium 4.5 mmol/L (3.5-5.1); Protein, Total 7.5 g/dL (6.4-8.2); Sodium Level 140 mmol/L (136-145); Thyroid Stim Hormone (TSH) 1.92 uIU/mL (0.358-3.74)
[2018-08-19 16:54] LABS: Absolute Lymphocyte Count 3.63 X10^3/ul (0.83-4.51); Absolute Neutrophil Count 5.8 X10^3/uL (2.0-7.7); Basophil# 0.07 X10^3/uL; Basophil% 0.6 % (0-1); Eosinophil# 0.19 X10^3/uL; Eosinophils% 1.8 % (0-5); Hematocrit 40.8 % (37-47); Hemoglobin 12.9 g/dl (12.0-15.0); Lymphocyte # 3.63 X10^3/ul (4.0); Lymphocyte % 33.5 % (19-41); Mean Corp Hgb Conc 31.6 g/gl (32-36); Mean Corpuscular Hgb 29.5 pg (27.0-32.0); Mean Corpuscular Volume 93.2 fL (81-99); Mean Platelet Vol. 9.4 fl (6.2-12.0); Monocyte# 1.12 X10^3/uL; Monocyte% 10.4 % (0-10); Neutrophil % 53.6 % (47-70); Platelet Count 545 K/mm3 (150-450); RBC Distribution Width CV 15.1 % (11.6-14.6); RBC Distribution Width SD 51.6 fl (35.1-43.9); Red Blood Count 4.38 M/mm3 (4.2-5.4); White Blood Count 10.8 K/mm3 (4.4-11.0)
[2018-08-19 16:55] LABS: POSITIVE COUNT NO; POSITIVE DIFFERENTIAL NO; POSITIVE MORPHOLOGY NO
== END ==
PROVIDERS: Family Provider Family Medicine Geriatric Medicine; PCP Family Medicine Geriatric Medicine; Visit Provider Family Medicine Geriatric Medicine
DX: E55.9 Vitamin D deficiency, unspecified (principal); R53.83 Other fatigue
CPT/HCPCS: 36415; 80053; 82306; 84443; 85025

== ENCOUNTER → 2018-09-17 08:00 | Outpatient (CLI) | payer MEDICARE, OTHER, SELFPAY ==
[2018-06-05 09:54] VITALS: BMI 20.1
--- NOTE | 2018-09-17 08:05 | US_ITS ---
PROCEDURES: ULTRASOUND AORTA REASON FOR EXAM: Female, 68 years old. AAASUS Aorta PREVIOUS SMOKER TECHNIQUE: Ultrasound evaluation of the aorta was performed with real-time and static banegas-scale imaging. COMPARISON: None. FINDINGS: There is atherosclerotic plaque formation of the abdominal aorta. Aorta measures: Proximal 2.1 cm. Middle 1.6 cm. Distal 1.7 cm. Aorta measure transversely: Proximal 2.0 cm. Middle 1.9 cm. Distal 1.7 cm. Right iliac artery measures: 0.9 cm. Right iliac artery measure transversely: 1.1 cm. Left iliac artery measures: 0.7 cm. Left iliac artery measure transversely: 0.9 cm. There is no demonstrated aneurysm.. US/Aorta IMPRESSION: Atherosclerotic plaque. No aneurysm. Electronically Signed: Stanley Mccarthy MD at 15:36 EDT , Service support ,
--- NOTE | 2018-09-17 08:05 | CT_ITS ---
STUDY: LOW DOSE CT LUNG CANCER SCREENING REASON FOR EXAM: Female, 68 years old. 47 pack-year history. History of COPD. RADIATION DOSAGE (If Supplied By Facility): CTDIvol = ( 2.55 ) mGy, DLP = ( 81.37 ) mGycm TECHNIQUE: No contrast was administered. Low dose technique was utilized (average mAS-38 and kVp 120). 1.25 mm axial source images with a slice interval of 1.25-mm were reconstructed in lung windows. 2.5 mm axial source images with a slice interval of 2.5-mm were reconstructed in lung windows. 5.0 mm axial source images with a slice interval of 5.0-mm were reconstructed in soft tissue windows. Nodule measured using lung windows on PACS and/or independent workstation with automated measurement of minimum and maximum diameter. Nodule measurement reported as average diameter rounded to the nearest whole number. Growth is defined as an increase ins size of greater than 1.5 mm. COMPARISON: July 18, 2017. NODULES: Total lung nodules (excluding granulomas): 0 Emphysema: There are minimal emphysematous changes lungs. There is apical pleural scarring as well as stable scarring in the region of the lingula and medial right middle lobe. Endobronchial lesion: No Aorta: Normal Coronary arteries: None Heart: Normal Pulmonary artery: Normal Mediastinal nodes: There is diffuse subcentimeter nonspecific mediastinal lymphadenopathy. Other chest and abdominal findings: CT/Low Dose CT Lung Screening IMPRESSION: Stable findings when compared to prior study. Lung-RADS category 1 - Continue annual screening with LDCT in 12 months. IMPORTANT NOTES FOR USE: ACR Lung-RADS Version 1.0 Assessment Categories Release Date: August 18, 2013 Category: Coded 0-4 bases on nodule(s) with highest degree of suspicion. Negative screen is defined as categories 1 and 2; a positive screen is defined as categories 3 and 4. Category 3 and 4A nodules that are unchanged on interval CT should be coded as category 2, and individuals returned to screening in 12 months. Category 4X: Category 3 or 4 nodules with additional imaging findings that increase the suspicion of lung cancer, such as spiculation, GGN that doubles in size in 1 year, enlarged lymph notes, etc. Category Modifiers: S (significant finding unrelated to lung cancer) and C (prior history of treated lung cancer) may be added to the 0-4 Lung-RADS Electronically Signed: Alexandre Almanza DO at 17:26 EDT Tel [phone], Service support ,
== END ==
PROVIDERS: Family Provider Family Medicine Geriatric Medicine; PCP Family Medicine Geriatric Medicine; Referring Provider Family Medicine Geriatric Medicine; Visit Provider Family Medicine Geriatric Medicine
DX: I71.4 Abdominal aortic aneurysm, without rupture (principal); Z12.2 Encounter for screening for malignant neoplasm of respiratory organs; Z87.891 Personal history of nicotine dependence
CPT/HCPCS: 76775; G0297

== ENCOUNTER → 2019-02-19 11:30 | Outpatient (CLI) | payer MEDICARE, OTHER, SELFPAY ==
[2018-06-05 09:54] VITALS: BMI 20.1
[2019-02-19 12:52] LABS: Absolute Neutrophil Count 9.2 X10^3/uL (2.0-7.7); Basophil% 0.7 % (0-1); Eosinophils% 1.3 % (0-5); Hematocrit 41.5 % (37-47); Hemoglobin 13.1 g/dL (12.0-15.0); Lymphocyte % 24.7 % (19-41); Mean Corp Hgb Conc 31.6 g/dL (32-36); Mean Corpuscular Hgb 29.2 pg (27.0-32.0); Mean Corpuscular Volume 92.4 fL (81-99); Mean Platelet Vol. 9.7 fl (6.2-12.0); Monocyte# 1.72 X10^3/uL; Monocyte% 11.5 % (0-10); NRBC Flagged by Analyzer 0 % (0-5); Neutrophil # 9.23 X10^3/uL (2.7-7.7); Neutrophil % 61.5 % (47-70); POSITIVE DIFFERENTIAL YES; Platelet Count 550 K/mm3 (150-450); RBC Distribution Width CV 14.1 % (11.6-14.6); Red Blood Count 4.49 M/mm3 (4.2-5.4)
[2019-02-19 13:11] LABS: Vitamin D,25 Hydroxy 89.1 ng/mL (29.95-100.01)
[2019-02-19 13:12] LABS: Differential Indicated SCAN CRITERIA MET
[2019-02-19 13:19] LABS: ALB/GLOB Ratio 0.9 RATIO (0.9-2.4); AST(SGOT) 16 U/L (15-37); Alanine Aminotransfer ALT/SGPT 20 U/L (13-56); Albumin, Serum 3.6 g/dL (3.2-5.0); Alkaline Phosphatase 83 U/L (45-117); Anion Gap 6 (5-15); BUN 13 mg/dL (7-18); Calcium,Total 9.1 mg/dL (8.5-10.1); Chloride 105 mmol/L (98-107); Creatinine, Serum 0.87 mg/dL (0.55-1.02); EST Glomerular Filtration Rate 69 mL/min (>60); Est Glom Filt Rate - Afr Amer 83 mL/min (>60); Globulin 3.9 g/dL (2.2-4.2); Glucose 81 mg/dL (74-106); Potassium 4.5 mmol/L (3.5-5.1); Protein, Total 7.5 g/dL (6.4-8.2); Sodium Level 141 mmol/L (136-145)
[2019-02-20 13:41] LABS: Pathologist Review Reviewed
== END ==
PROVIDERS: Family Provider Family Medicine Geriatric Medicine; PCP Family Medicine Geriatric Medicine; Visit Provider Family Medicine Geriatric Medicine
DX: E55.9 Vitamin D deficiency, unspecified (principal); R53.83 Other fatigue
CPT/HCPCS: 36415; 80053; 82306; 84443; 85025

== ENCOUNTER → 2019-08-15 09:25 | Outpatient (CLI) | payer MEDICARE, OTHER, SELFPAY ==
[2019-04-28 15:24] VITALS: BMI 21.1
--- NOTE | 2019-08-15 09:27 | BI_ITS ---
MAMMOGRAPHY - BILATERAL SCREENING REASON FOR EXAM: Female, 69 years old. Routine annual screening examination. PERTINENT HISTORY: Sister with breast cancer. Grandmother with breast cancer. TECHNIQUE: Digital bilateral breast francis (3D mammographic acquisition) in the CC and MLO projections. 2-D mediolateral oblique (MLO) and craniocaudad (CC) views of both breasts were obtained. CAD: Full Field Digital Mammography with Computer Added Detection was performed. COMPARISON: Comparison is made with prior examination of July 04, 2018 and June 26, 2017. FINDINGS: Breast Composition: The breasts are heterogeneously dense, which may obscure small masses. There are no dominant masses or suspicious calcifications. Stable benign-appearing bilateral axillary lymph nodes. No other significant abnormalities are identified. There has been no significant change since the prior study. BI/SCREEN MAMM (CAD) W/FRANCIS BILAT IMPRESSION: Stable bilateral screening mammogram. Yearly follow-up mammogram recommended. (A) ASSESSMENT CATEGORY: BIRADS Category 2: Benign. A letter regarding these results will be sent to the patient by the facility within 30 days. Approximately 10% of breast cancers are not detected by mammography. A normal mammogram should not delay biopsy of a clinically suspicious abnormality. [id number] Electronically Signed: Graham Benjamin, at 10:34 EDT , Service support ,
== END ==
PROVIDERS: PCP Family Medicine Geriatric Medicine; Referring Provider Family Medicine Geriatric Medicine; Visit Provider Family Medicine Geriatric Medicine
DX: Z12.31 Encounter for screening mammogram for malignant neoplasm of breast (principal)
CPT/HCPCS: 77063; 77067

== ENCOUNTER → 2019-10-08 11:55 | Outpatient (CLI) | payer MEDICARE, OTHER, SELFPAY ==
[2019-04-28 15:24] VITALS: BMI 21.1
[2019-10-08 12:38] LABS: Vitamin D,25 Hydroxy 95.1 ng/mL
[2019-10-08 12:43] LABS: Absolute Lymphocyte Count 3.16 X10^3/uL (0.83-4.51); Absolute Neutrophil Count 6.5 X10^3/uL (2.0-7.7); Basophil# 0.11 X10^3/uL; Eosinophil# 0.14 X10^3/uL; Eosinophils% 1.2 % (0-5); Hematocrit 41.2 % (37-47); Lymphocyte # 3.16 X10^3/ul (4.0); Lymphocyte % 28.1 % (19-41); Mean Corp Hgb Conc 31.6 g/dL (32-36); Mean Corpuscular Hgb 29.3 pg (27.0-32.0); Mean Platelet Vol. 9.3 fl (6.2-12.0); Monocyte% 11.6 % (0-10); NRBC Flagged by Analyzer 0 % (0-5); Neutrophil % 57.7 % (47-70); Platelet Count 592 K/mm3 (150-450); RBC Distribution Width SD 47.8 fl (35.1-43.9); Red Blood Count 4.43 M/mm3 (4.2-5.4); White Blood Count 11.3 K/mm3 (4.4-11.0)
[2019-10-08 12:48] LABS: ALB/GLOB Ratio 0.9 RATIO (0.9-2.4); AST(SGOT) 22 U/L (15-37); Alanine Aminotransfer ALT/SGPT 23 U/L (13-56); Albumin, Serum 3.5 g/dL (3.2-5.0); Alkaline Phosphatase 78 U/L (45-117); Anion Gap 6 (5-15); BUN 13 mg/dL (7-18); BUN/Creat Ratio 15.7 RATIO (10-20); Calcium,Total 9.1 mg/dL (8.5-10.1); Chloride 102 mmol/L (98-107); Creatinine, Serum 0.83 mg/dL (0.55-1.02); EST Glomerular Filtration Rate 72 mL/min (>60); Est Glom Filt Rate - Afr Amer 88 mL/min (>60); Glucose 88 mg/dL (74-106); Potassium 4.3 mmol/L (3.5-5.1); Protein, Total 7.5 g/dL (6.4-8.2); Sodium Level 139 mmol/L (136-145); Thyroid Stim Hormone (TSH) 1.73 uIU/mL (0.358-3.74)
== END ==
PROVIDERS: PCP Family Medicine Geriatric Medicine; Visit Provider Family Medicine Geriatric Medicine
DX: E55.9 Vitamin D deficiency, unspecified (principal); R53.83 Other fatigue
CPT/HCPCS: 36415; 80053; 82306; 84443; 85025

== ENCOUNTER → 2019-12-01 16:34 | Outpatient (CLI) | payer MEDICARE, OTHER, SELFPAY ==
[2019-04-28 15:24] VITALS: BMI 21.1
--- NOTE | 2019-12-01 16:42 | CT_ITS ---
STUDY: CT ABDOMEN AND PELVIS WITH CONTRAST REASON FOR EXAM: Female, 69 years old. Abdominal pain for years. Elevated white count. RADIATION DOSAGE (If Supplied By Facility): CTDIvol = ( 17.24 ) mGy, DLP = ( 539.93 ) mGycm TECHNIQUE: Transaxial images were obtained from the dome of the diaphragm to the symphysis pubis with oral contrast. ; 100mL Isovue-300 was administered. Sagittal and coronal images were reconstructed. Individualized dose optimization techniques were used for this CT. COMPARISON: None. FINDINGS: The visualized lung bases are unremarkable. The visualized portions of the heart are within normal limits. There is a 3.8 x 3.2 x 5.6 cm mass in the dome of segment 7 liver has characteristics consistent with hemangioma. The liver is otherwise unremarkable. Normal gallbladder and extrahepatic biliary system. There is no normal spleen. There is a 1.9 x 0.8 x 1.4 cm splenule in the pancreatic tail. Normal pancreas. Normal bilateral adrenal glands. Normal right kidney. Normal left kidney. Normal visualized stomach. Normal small intestine. The descending and sigmoid diverticulosis. There is thickening of the sigmoid wall suggesting possible mild diverticulitis. Proximal colon is unremarkable There is non-visualization of the appendix. There is diffuse atherosclerotic calcification of the abdominal aorta, without a demonstrated aneurysm. Normal inferior vena cava. Nonspecific subcentimeter retroperitoneal lymphadenopathy. Normal urinary bladder. Retroverted uterus with multiple enhancing masses consistent with fibroids. Normal adnexa. There is minimal free fluid in the right posterior cul-de-sac. No free air is seen within the peritoneal cavity. There is a PUMP HOUSE TECHNICIAN shunt catheter in the soft tissues of the right lower chest and abdomen. This enters the abdominal cavity just below the costocartilage extends along the anterior underside of the liver downward into the right lower quadrant before crossing over the dome of the bladder that could tip lies in the left lower quadrant. Abdominal wall is otherwise unremarkable. There are diffuse degenerative changes of the visualized lumbar spine. CT/Abdomen/Pelvis WITH Contrast IMPRESSION: 1. PUMP HOUSE TECHNICIAN shunt catheter as described. 2. Hemangioma in the right liver. 3. Question sigmoid diverticulitis versus chronic diverticulosis. 4. Fibroid uterus. 5. Free fluid in posterior cul-de-sac thought to be physiologic. Electronically Signed: Alexandre Almanza DO at 21:24 EDT Tel [phone], Service support ,
[2019-12-01 16:52] LABS: Absolute Lymphocyte Count 4.12 X10^3/uL (0.83-4.51); Absolute Neutrophil Count 6.6 X10^3/uL (2.0-7.7); Basophil# 0.11 X10^3/uL; Basophil% 0.9 % (0-1); Eosinophil# 0.29 X10^3/uL; Eosinophils% 2.3 % (0-5); Hematocrit 38.6 % (37-47); Hemoglobin 12.5 g/dL (12.0-15.0); Lymphocyte # 4.12 X10^3/ul (4.0); Lymphocyte % 32.5 % (19-41); Mean Corp Hgb Conc 32.4 g/dL (32-36); Mean Corpuscular Hgb 29.9 pg (27.0-32.0); Mean Corpuscular Volume 92.3 fL (81-99); Mean Platelet Vol. 9.2 fl (6.2-12.0); Monocyte# 1.53 X10^3/uL; Monocyte% 12.1 % (0-10); NRBC Flagged by Analyzer 0 % (0-5); POSITIVE DIFFERENTIAL YES; POSITIVE MORPHOLOGY YES; Platelet Count 587 K/mm3 (150-450); RBC Distribution Width CV 13.7 % (11.6-14.6); RBC Distribution Width SD 46.9 fl (35.1-43.9); Red Blood Count 4.18 M/mm3 (4.2-5.4); White Blood Count 12.7 K/mm3 (4.4-11.0)
[2019-12-01 16:53] LABS: Differential Indicated SCAN CRITERIA MET
[2019-12-01 17:02] LABS: ALB/GLOB Ratio 0.8 RATIO (0.9-2.4); AST(SGOT) 16 U/L (15-37); Alanine Aminotransfer ALT/SGPT 21 U/L (13-56); Albumin, Serum 3.3 g/dL (3.2-5.0); Alkaline Phosphatase 75 U/L (45-117); Anion Gap 3 (5-15); BUN 15 mg/dL (7-18); BUN/Creat Ratio 25.5 RATIO (10-20); Calcium,Total 9.1 mg/dL (8.5-10.1); Chloride 104 mmol/L (98-107); Creatinine, Serum 0.59 mg/dL (0.55-1.02); EST Glomerular Filtration Rate 107 mL/min (>60); Est Glom Filt Rate - Afr Amer 130 mL/min (>60); Glucose 90 mg/dL (74-106); Potassium 4.4 mmol/L (3.5-5.1); Protein, Total 7.3 g/dL (6.4-8.2); Sodium Level 138 mmol/L (136-145)
[2019-12-01 17:11] LABS: Differential Comment SCANNED
[2019-12-02 11:54] LABS: Pathologist Review Reviewed
== END ==
PROVIDERS: PCP Family Medicine Geriatric Medicine; Referring Provider Family Medicine Geriatric Medicine; Visit Provider Family Medicine Geriatric Medicine
DX: R10.9 Unspecified abdominal pain (principal)
CPT/HCPCS: 36415; 74177; 80053; 85025; Q9967

== ENCOUNTER → 2019-12-02 11:43 | Outpatient (CLI) | payer MEDICARE, OTHER, SELFPAY ==
[2019-04-28 15:24] VITALS: BMI 21.1
== END ==
PROVIDERS: PCP Family Medicine Geriatric Medicine; Referring Provider Family Medicine Geriatric Medicine; Visit Provider Family Medicine Geriatric Medicine
DX: R19.7 Diarrhea, unspecified (principal)
CPT/HCPCS: 82274; 83630; 87177; 87209; 87493; 87506

== ENCOUNTER → 2020-04-09 11:10 | Outpatient (CLI) | payer MEDICARE, OTHER, SELFPAY ==
[2019-04-28 15:24] VITALS: BMI 21.1
--- NOTE | 2020-04-09 12:27 | RAD_ITS ---
STUDY: X-RAY - LUMBAR SPINE REASON FOR EXAM: Female, 69 years old. Lower back pain for several months. Increasing pain over the past week. Right leg pain. TECHNIQUE: 3 view(s) of the lumbar spine were obtained. COMPARISON: None FINDINGS: Normal lumbar lordosis. There is no substantial scoliosis. There is minimal anterolisthesis of L4 and L5. The alignment is otherwise preserved. Normal vertebral bodies and endplates. Normal disc space heights. Axial no spine fracture there is mild degenerative facet disease. There is a catheter in the right abdomen thought to represent the distal end of the [employer]GE shunt catheter. RAD/Lumbar Spine 2 or 3 Views IMPRESSION: Minimal spondylolisthesis of L4-5. Electronically Signed: Alexandre Almanza DO at 16:49 EST Tel [phone], Service support ,
[2020-04-09 13:21] LABS: Absolute Lymphocyte Count 3.04 X10^3/uL (0.83-4.51); Absolute Neutrophil Count 5.4 X10^3/uL (2.0-7.7); Basophil# 0.09 X10^3/uL; Basophil% 0.9 % (0-1); Eosinophil# 0.18 X10^3/uL; Eosinophils% 1.8 % (0-5); Hematocrit 40.9 % (37-47); Hemoglobin 13.1 g/dL (12.0-15.0); Lymphocyte # 3.04 X10^3/ul (4.0); Lymphocyte % 31.1 % (19-41); Mean Corpuscular Hgb 29.6 pg (27.0-32.0); Mean Corpuscular Volume 92.3 fL (81-99); Mean Platelet Vol. 9.9 fl (6.2-12.0); Monocyte# 1.07 X10^3/uL; NRBC Flagged by Analyzer 0 % (0-5); Neutrophil # 5.36 X10^3/uL (2.7-7.7); Neutrophil % 54.9 % (47-70); Platelet Count 593 K/mm3 (150-450); RBC Distribution Width CV 14.3 % (11.6-14.6); RBC Distribution Width SD 48.4 fl (35.1-43.9); Red Blood Count 4.43 M/mm3 (4.2-5.4); White Blood Count 9.8 K/mm3 (4.4-11.0)
[2020-04-09 13:28] LABS: Vitamin D,25 Hydroxy 70.7 ng/mL
[2020-04-09 13:39] LABS: ALB/GLOB Ratio 0.9 RATIO (0.9-2.4); AST(SGOT) 15 U/L (15-37); Alanine Aminotransfer ALT/SGPT 19 U/L (13-56); Albumin, Serum 3.6 g/dL (3.2-5.0); Alkaline Phosphatase 87 U/L (45-117); Anion Gap 5 (5-15); BUN 9 mg/dL (7-18); BUN/Creat Ratio 11.7 RATIO (10-20); Calcium,Total 8.9 mg/dL (8.5-10.1); Chloride 106 mmol/L (98-107); Creatinine, Serum 0.77 mg/dL (0.55-1.02); EST Glomerular Filtration Rate 79 mL/min (>60); Est Glom Filt Rate - Afr Amer 95 mL/min (>60); Globulin 3.8 g/dL (2.2-4.2); Glucose 88 mg/dL (74-106); Potassium 4.4 mmol/L (3.5-5.1); Protein, Total 7.4 g/dL (6.4-8.2); Sodium Level 138 mmol/L (136-145)
== END ==
LOC: POLAB3 11:11 → RAD 12:26
PROVIDERS: PCP Family Medicine Geriatric Medicine; Referring Provider Family Medicine Geriatric Medicine; Visit Provider Family Medicine Geriatric Medicine
DX: E55.9 Vitamin D deficiency, unspecified (principal); R53.83 Other fatigue; M54.5 Low back pain
CPT/HCPCS: 36415; 72100; 80053; 82306; 84443; 85025

== ENCOUNTER → 2020-05-26 14:40 | Outpatient (CLI) | payer MEDICARE, OTHER, SELFPAY ==
[2019-04-28 15:24] VITALS: BMI 21.1
--- NOTE | 2020-05-26 14:44 | CT_ITS ---
STUDY: CT LUMBAR SPINE WITHOUT CONTRAST REASON FOR EXAM: Female, 70 years old. Low back pain x months, no injury. Hx hydrocephalus with shunt, spleen removed. RADIATION DOSAGE (If Supplied By Facility): CTDIvol = ( 13.89 ) mGy, DLP = ( 410.55 ) mGycm TECHNIQUE: The patient was scanned in a multi detector CT scanner. High resolution transaxial imaging was performed. Images were obtained from L1 to S1 vertebral level. Sagittal and coronal images were reconstructed. Individualized dose optimization techniques were used for this CT. COMPARISON: None FINDINGS: There is straightening of the normal lumbar lordosis. There is no substantial scoliosis. Normal vertebrae of the lumbar spine. L1-2: Normal endplates. Normal disc height and morphology. Normal bilateral facet joints. Normal central canal and bilateral lateral recesses. Normal bilateral intervertebral neural foramina. L2-3: Normal endplates. Normal disc height and morphology. Normal bilateral facet joints. Normal central canal and bilateral lateral recesses. Normal bilateral intervertebral neural foramina. L3-4: Mild degree of disc space narrowing. Diffuse posterior disc bulge with facet joint osteoarthritis and hypertrophy causing a moderate degree of central canal stenosis and mild degree of bilateral neural foraminal stenosis. L4-5: Diffuse posterior disc bulge. There is evidence of bilateral neural foraminal stenosis more prominent on the left side. There is evidence of facet joint hypertrophy. There is bilateral neural foraminal stenosis worse on the left side. L5-S1: Normal endplates. Normal disc height and morphology. Normal bilateral facet joints. Normal central canal and bilateral lateral recesses. Normal bilateral intervertebral neural foramina. Normal visualized paraspinous soft tissue structures. CT/Spine Lumbar without Contrast IMPRESSION: Diffuse posterior disc bulge at the L3-L4 and L4-L5 levels causing central and bilateral neural foraminal stenosis. Electronically Signed: Graham Benjamin MD at 15:20 EST , Service support ,
== END ==
PROVIDERS: PCP Family Medicine Geriatric Medicine; Referring Provider Family Medicine Geriatric Medicine; Visit Provider Family Medicine Geriatric Medicine
DX: M54.5 Low back pain (principal)
CPT/HCPCS: 72131

== ENCOUNTER 2020-06-15 10:30 | Outpatient (RCR) | payer MEDICARE, OTHER, SELFPAY ==
[2019-04-28 15:24] VITALS: BMI 21.1
--- NOTE | 2020-05-27 11:12 | HP.PTEVAL_ITS ---
Patient's Visit Information JASE FARRIS is a 70 year old F referred to Physical Therapy by Dr. Kwaku Celeste MD with a diagnosis of Lumbar radiculopathy. Date of Evaluation: 05/27/20 Physical Therapist: Nicholas Taylor, PT, Cert MDT, OCS - Visit Plan Frequency: 2x /Week Duration: 4 Weeks Plan: 2xs/week for 4 weeks per POC. VERTIGO WITH PRONE DUE TO SHUNT; ELEVATED HEAD OF BED FOR SUPINE. PT Interventions: LE/hip strengthening, core stabilization, postural training, body mechanincs, flexibility/ROM. - Subjective Patient is a 70 year old female presenting to the clinic with low back pain. Patient reports back pain has been going on for the past few months (insidious onset). Denies any radicular symptoms, numbness, and tingling. Steroid injections and prednesone patches helped slightly to decrease pain. Aggravating factors: waking up in the morning, bending forward. Sitting and walking don't increase pain. Heat and pain medication helps. Reports sleeping with pain medication isn't difficult. Hx of shunt for hydrocephalis; states that her balance is off from this. Denies any recent falls. Vocation: Retired teacher. Social: - Pain Bilateral Back Pain Intensity (Out of 10): 4 Pain Intensity Range: 10 - Objective Sensation: Intact to light touch B LE. LE MMT: R hip flexion 4-/5, quads 4+/5, hams 4/5, DF 5/5, PF 5/5. L hip flexion 4-/5, quads 4+/5, hams 4/5, DF 5/5, PF 5/5. Lumbar AROM: Flexion WFL, Ext WFL, Sidebending WFL, Rotation WFL. Posture: Rounded shoulders. Palpation: Unremarkable. 90/90: WFL - Special Tests L/S Slump test left side: Negative L/S Slump test right side: Negative L/S Left Straight Leg Raise: Negative L/S Right Straight Leg Raise: Negative - Goals Goal 1:: Patient will demonstrate LE strength to 4+/5 for improved functional strength. Goal Time Frame: 4-6 Weeks Goal 2:: Patient will improve Oswestry (back) score by 5 or > points for improved QOL. Goal Time Frame: 4-6 Weeks Goal 3:: Patient will demonstrate independence with HEP. Goal Time Frame: 4-6 Weeks Goal 4:: Patient will report no more than 2/10 pain while participating in physical activities for improved function and mobility. Goal Time Frame: 4-6 Weeks - Rehabilitation Potential Physical Therapy Diagnosis: Patient is a 70 year old female presenting to the clinic with low back pain without radicular symptoms and gross muscular weakness in B LE.Patient had x-rays showed mild spondylothesis and CTSCAN showed mild bulding disc Rehabilitation Potential: Good - Anticipated Interventions Patient/Client Instruction: Educate patient on: Condition, Plan of Care For the Purpose of:: To decrease pain, To increase ROM, To improve muscle performance and motor function, To increase tolerance to activity/condition/position, To improve ability of physical actions for home/community/work/leisure, To increase flexibility/ROM, To improve health and function, To improve self management, To improve ability to perform tasks related to life management Therapeutic Exercise to Include: Strength training, Body mechanics, Postural training, Flexibilty training Comment: LE/hip strengthening, core stabilization For the Purpose of:: To decrease pain, To increase ROM, To improve muscle performance and motor function, To increase tolerance to activity/condition/position, To improve ability of physical actions for home/community/work/leisure, To increase flexibility/ROM, To improve health and function, To improve self management, To improve ability to perform tasks related to life management IF ES: Yes Other electric stimulation: Yes Cryotherapy (ice pack, ice massage): Yes Thermo therapy (hot pack): Yes For the Purpose of:: To decrease pain, To increase ROM, To improve muscle performance and motor function, To increase tolerance to activity/condition/position, To improve ability of physical actions for home/community/work/leisure, To increase flexibility/ROM, To improve health and function, To improve self management, To improve ability to perform tasks related to life management Thank you for the opportunity to evaluate your patient. For Medicare and Medicare HMO plans, please review the plan of care and approve it. It will need to be FAXED BACK to us at [phone] for Medicare purposes. For Medicare only, by signing this I certify the plan of care. Please let me know if there are questions or concerns regarding this plan of care. Physician Signature: __Date:
--- NOTE | 2020-11-30 13:35 | HP.PTDCNRP_ITS ---
JASE FARRIS was seen in my office for initial evaluation on 05/27/20. The following Plan of Care was established for this patient: Initial Frequency: 2x /Week Initial Duration: 4 Weeks Patient/Client Instruction: Educate patient on: Condition, Plan of Care For the Purpose of:: To decrease pain, To increase ROM, To improve muscle performance and motor function, To increase tolerance to activity/condition/position, To improve ability of physical actions for home/community/work/leisure, To increase flexibility/ROM, To improve health and function, To improve self management, To improve ability to perform tasks related to life management Therapeutic Exercise to Include: Strength training, Body mechanics, Postural training, Flexibilty training For the Purpose of:: To decrease pain, To increase ROM, To improve muscle pe rformance and motor function, To increase tolerance to activity/condition/position, To improve ability of physical actions for home/community/work/leisure, To increase flexibility/ROM, To improve health and function, To improve self management, To improve ability to perform tasks related to life management IF ES: Yes Other electric stimulation: Yes Cryotherapy (ice pack, ice massage): Yes Thermo therapy (hot pack): Yes For the Purpose of:: To decrease pain, To increase ROM, To improve muscle performance and motor function, To increase tolerance to activity/condition/position, To improve ability of physical actions for home/community/work/leisure, To increase flexibility/ROM, To improve health and function, To improve self management, To improve ability to perform tasks related to life management This patient was last seen in our office . Pertinent comments regarding their Physical therapy will appear below: Patient seen for PT for Low back pain for HEP ,DLS ,POSTURAL EX'S ,Doing well thus d/c At this point I will be discontinuing this patient from physical therapy. I would be happy to see this patient again in the future if found appropriate by the physician. Thank you! Nicholas Taylor, PT, Cert MDT, OCS Balance/Gait/Functional tests - Balance/Special Test Scores Oswestry Low Back Score: 2
== END 2020-06-15 19:00 | disposition home or self-care (01) ==
LOC: PT 10:30
PROVIDERS: PCP Family Medicine Geriatric Medicine; Referring Provider Family Medicine Geriatric Medicine; Visit Provider Family Medicine Geriatric Medicine
DX: M54.16 Radiculopathy, lumbar region (principal)
CPT/HCPCS: 97110; 97161

== ENCOUNTER 2020-07-01 02:56 | Outpatient (RCR) | payer MEDICARE, OTHER, SELFPAY ==
[2019-04-28 15:24] VITALS: BMI 21.1
[2020-07-01] MEDS: COVID-19 VACC, MRNA(PFIZER)/PF 30 MCG/0.3 ML SYRINGE IM (09:45)
[2020-07-22] MEDS: COVID-19 VACC, MRNA(PFIZER)/PF 30 MCG/0.3 ML SYRINGE IM (09:17)
== END 2020-09-28 23:59 ==
LOC: IMMUN 02:56
PROVIDERS: PCP Family Medicine Geriatric Medicine; Visit Provider Family Medicine
DX: Z23 Encounter for immunization (principal)
CPT/HCPCS: 0001A; 0002A; 91300

== ENCOUNTER → 2020-08-24 10:06 | Outpatient (CLI) | payer MEDICARE, OTHER, SELFPAY ==
[2019-04-28 15:24] VITALS: BMI 21.1
--- NOTE | 2020-08-24 10:08 | BI_ITS ---
MAMMOGRAPHY - BILATERAL SCREENING REASON FOR EXAM: Female, 70 years old. Routine annual screening examination. PERTINENT HISTORY: Sister with breast cancer. Grandmother with breast cancer. TECHNIQUE: Digital bilateral breast francis (3D mammographic acquisition) in the CC and MLO projections. 2-D mediolateral oblique (MLO) and craniocaudad (CC) views of both breasts were obtained. CAD: Full Field Digital Mammography with Computer Added Detection was performed. COMPARISON: Comparison is made with prior study dated 08/15/2019 and 07/04/2018. FINDINGS: Breast Composition: The breasts are heterogeneously dense, which may obscure small masses. There are no dominant masses or suspicious calcifications. Stable small benign-appearing bilateral axillary lymph nodes. No other significant abnormalities are identified. There has been no significant change since the prior study. BI/SCRN MAMM (CAD)W/FRANCIS BILAT IMPRESSION: Stable bilateral screening mammogram. Yearly follow-up mammogram recommended. (A) ASSESSMENT CATEGORY: BIRADS Category 2: Benign. A letter regarding these results will be sent to the patient by the facility within 30 days. Approximately 10% of breast cancers are not detected by mammography. A normal mammogram should not delay biopsy of a clinically suspicious abnormality. [id number] Electronically Signed: Graham Benjamin MD at 12:31 EDT , Service support ,
== END ==
PROVIDERS: PCP Family Medicine Geriatric Medicine; Referring Provider Family Medicine Geriatric Medicine; Visit Provider Family Medicine Geriatric Medicine
DX: Z12.31 Encounter for screening mammogram for malignant neoplasm of breast (principal)
CPT/HCPCS: 77063; 77067

== ENCOUNTER → 2020-11-25 12:52 | Outpatient (CLI) | payer MEDICARE, OTHER, SELFPAY ==
[2019-04-28 15:24] VITALS: BMI 21.1
[2020-11-25 13:40] LABS: Absolute Lymphocyte Count 3.23 X10^3/uL (0.83-4.51); Absolute Neutrophil Count 9.5 X10^3/uL (2.0-7.7); Basophil# 0.12 X10^3/uL; Basophil% 0.8 % (0-1); Eosinophil# 0.27 X10^3/uL; Eosinophils% 1.8 % (0-5); Hematocrit 41.9 % (37-47); Hemoglobin 13.7 g/dL (12.0-15.0); Lymphocyte # 3.23 X10^3/ul (0.83-4.51); Lymphocyte % 21.9 % (19-41); Mean Corp Hgb Conc 32.7 g/dL (32-36); Mean Corpuscular Hgb 30.3 pg (27.0-32.0); Mean Corpuscular Volume 92.7 fL (81-99); Mean Platelet Vol. 9.1 fl (6.2-12.0); Monocyte# 1.63 X10^3/uL; NRBC Flagged by Analyzer 0 % (0-5); Neutrophil # 9.47 X10^3/uL (2.7-7.7); Neutrophil % 64.2 % (47-70); POSITIVE DIFFERENTIAL YES; Platelet Count 619 K/mm3 (150-450); RBC Distribution Width CV 13.6 % (11.6-14.6); RBC Distribution Width SD 46.8 fl (35.1-43.9); Red Blood Count 4.52 M/mm3 (4.2-5.4); White Blood Count 14.8 K/mm3 (4.4-11.0)
[2020-11-25 13:46] LABS: Differential Indicated SCAN CRITERIA MET
[2020-11-25 14:04] LABS: ALB/GLOB Ratio 0.9 RATIO (0.9-2.4); AST(SGOT) 20 U/L (15-37); Alanine Aminotransfer ALT/SGPT 30 U/L (13-56); Albumin, Serum 3.6 g/dL (3.2-5.0); Alkaline Phosphatase 81 U/L (45-117); Anion Gap 7 (5-15); BUN 21 mg/dL (7-18); Calcium,Total 8.9 mg/dL (8.5-10.1); Chloride 101 mmol/L (98-107); EST Glomerular Filtration Rate 87 mL/min (>60); Est Glom Filt Rate - Afr Amer 106 mL/min (>60); Globulin 3.8 g/dL (2.2-4.2); Glucose 94 mg/dL (74-106); Potassium 4.4 mmol/L (3.5-5.1); Protein, Total 7.4 g/dL (6.4-8.2); Sodium Level 137 mmol/L (136-145); Thyroid Stim Hormone (TSH) 1.58 uIU/mL (0.358-3.74)
[2020-11-26 11:42] LABS: Pathologist Review Reviewed
== END ==
PROVIDERS: PCP Family Medicine Geriatric Medicine; Visit Provider Family Medicine Geriatric Medicine
DX: E55.9 Vitamin D deficiency, unspecified (principal); R53.83 Other fatigue
CPT/HCPCS: 36415; 80053; 82306; 84443; 85025

== ENCOUNTER 2021-01-21 16:26 | Emergency (ER) | payer MEDICARE, OTHER, SELFPAY ==
[2021-01-21 16:28] VITALS: BP 109/99; PULSE 77; RESP 16; TEMP 36; O2SAT 94; BMI 20.8
--- NOTE | 2021-01-21 17:16 | EDS_ITS ---
HPI History of Present Illness Chief Complaint: Lower Extremity Injury Detail of Chief Complaint: Atraumatic right calf pain Informant: patient Onset/Context/Timing Onset: Yesterday Context: Sudden Onset Timing: Continuous Quality of Pain: Dull and Aching Location: Right calf Current Severity: Mild Maximum Severity: Moderate Worsened by: Palp patient in walking Relieved by: Nothing Associated Symptoms Associated Symptoms: Negative for Parasthesia, Weakness and Loss of Funtion Narrative Narrative: Patient is a 70-year-old woman who had onset of symptoms considered with Covid on Sunday. She had a positive Covid test. She presents because of atraumatic right calf pain. She denies history of VTE. She denies increased shortness of breath. Denies pleuritic chest pain. She has no other symptoms. Tetanus Immunization: 5-10 years Prior similar symptoms: No Recent Illness/Hospitalization: Yes PFSH PFS Medical History Anxiety COVID-19 Heart murmur Insomnia Shoulder pain Status post gamma knife treatment Home Medications ascorbic acid (vitamin C) 500 mg PO DAILY 04/09/17 [History Last Taken Unknown] metoprolol succinate 25 mg PO DAILY 04/09/17 [History Last Taken Unknown] multivitamin 1 ea PO DAILY 04/09/17 [History Last Taken Unknown] sertraline 25 mg PO DAILY 04/09/17 [History Last Taken Unknown] trazodone 100 mg PO QHS 04/09/17 [History Last Taken Unknown] calcium carbonate-vitamin D3 600 mg (1,500 mg)-400 unit capsule cap PO cap 06/05/18 [History Last Taken Unknown] cholecalciferol (vitamin D3) [Vitamin D3] 0 mcg PO DAILY 01/21/21 [History Last Taken Unknown] Allergy/AdvReac Type Severity Reaction Status Date / Time celecoxib [From Celebrex] AdvReac Abd Verified 01/21/21 16:33 cramps/diarrhea erythromycin base AdvReac Abd Verified 01/21/21 16:33 [Erythromycin Base] cramps/diarrhea Family History Father Diabetes Other Breast cancer Cancer Surgical History H/O splenectomy History of brain shunt Hx of eye surgery S/P splenectomy Social History (Updated 01/21/21 @ 17:[address] Matt Meier MD) household members: spouse Smoking Status: Former smoker alcohol intake: never substance use type: does not use caffeine: Yes what type of physical activity do you participate in: bicycling and other details: treadmill frequency: 3-4 times per week seatbelt use: always do you feel safe at home: Yes additional social history: -[employer]ob Patient and are both retired ROS ROS ED Constitutional Constitutional ED: Denies chills, fever(s) or subjective Eyes Eyes: Denies blurry vision or change in vision Cardiovascular Cardiovascular: Denies chest pain or palpitations Respiratory/Chest Respiratory/Chest: Reports cough, dyspnea and dyspnea on exertion; Denies sputum Gastrointestinal Gastrointestinal: Denies nausea or vomiting Musculoskeletal Musculoskeletal: Reports other Details: Right calf pain ; Denies arthralgias, back pain, myalgias or neck pain Integumentary Denies rash Hematologic/Lymphatic Hematologic/Lymphatic: Denies easy bleeding or easy bruising EXAM Physical Exam Const Vital Signs: 01/21/21 16:28 01/21/21 19:38 Temperature 96.8 F L Temperature Source Temporal Pulse Rate 77 70 Respiratory Rate 16 16 Blood Pressure 109/99 H 144/64 H Blood Pressure Mean 102 90 Pulse Ox 94 92 Oxygen Delivery Method Room Air Room Air Positive well nourished and well developed General Appearance ED: well developed and NAD HEENT normocephalic and atraumatic Eyes Eyes Narrative: Extraocular muscles are intact. Sclerae anicteric. Neck full ROM Extremity normal to inspection and full ROM Extremity Narrative: There is pain no patient on the distribution of deep venous system. General Extremety ED: Negative for cyanosis, edema or weight-bearing difficulty General Extremity: Negative for cyanosis, edema or weight-bearing difficulty Neuro oriented x3 and CN's II-XII intact bilaterally Sensorium / Orientation: alert Psych mental status grossly normal Skin no wounds Lesions: no lesions Rashes: no rashes MDM MDM MDM Narrative Medical decision making narrative: With positive Covid test, less activity atraumatic calf pain with tenderness on distribution deep venous system need to evaluate for DVT. Venous duplex was ordered. Radiography Diagnostic Testing: Radiology Impression Venous Duplex 01/21/21 17:20 IMPRESSION: No sonographic evidence of deep venous thrombosis. Electronically Signed: Kyler Paulino MD at 18:27 EDT Tel , Service support , Discharge Plan Triage Chief Complaint: Lower Extremity Injury ED Provider: Matt Meier Dx/Rx/DC Orders Clinical Impression: Pain of right calf Instructions: ED Pain, Acute, Uncertain Cause, ED RICE Prescriptions: No Action calcium carbonate-vitamin D3 [Calcium 600 with Vitamin D3] 600 mg(1,500mg) - 400 unit capsule PO RF: 0 multivitamin 1 EACH tablet 1 ea PO DAILY RF: 0 trazodone 100 MG tablet 100 mg PO QHS RF: 0 sertraline 25 MG tablet 25 mg PO DAILY RF: 0 metoprolol succinate 25 MG tablet extended release 24 hr 25 mg PO DAILY RF: 0 ascorbic acid (vitamin C) 500 MG capsule 500 mg PO DAILY RF: 0 cholecalciferol (vitamin D3) [Vitamin D3] 10 mcg (400 unit) Capsule 0 mcg PO DAILY RF: 0 Primary Care Provider: Buffy Wong Referrals: Buffy Wong MD [Primary Care Provider] - 3-5 Days if not improving Disposition Disposition: Home, Self Care
--- NOTE | 2021-01-21 17:20 | US_ITS ---
INDICATION: RT POSTERIOR CALF PAIN EXAMINATION: US Venous Duplex LE Unilat / Limited TECHNIQUE: Garcia scale, pulse wave, and color flow Doppler imaging was performed of the lower extremity venous system. The right greater saphenous, common femoral, femoral, and popliteal veins were interrogated. COMPARISON: None. FINDINGS: There is normal compression, augmentation, and signal throughout the visualized deep lower extremity veins. No mass or fluid collection. US/Venous Duplex Imag/Limited/Uni IMPRESSION: No sonographic evidence of deep venous thrombosis. Electronically Signed: Kyler Paulino MD at 18:27 EDT Tel , Service support ,
[2021-01-21 19:38] VITALS: BP 144/64; PULSE 70; RESP 16; O2SAT 92
[2021-01-21 20:02] VITALS: BP 144/64
== END 2021-01-21 20:03 | disposition home or self-care (01) ==
PROVIDERS: Emergency Provider Emergency Medicine; PCP Family Medicine
DX: M79.661 Pain in right lower leg (principal); U07.1 COVID-19; Z87.891 Personal history of nicotine dependence; Z79.899 Other long term (current) drug therapy
CPT/HCPCS: 93971; 99282

== ENCOUNTER → 2021-08-31 | Outpatient (CLI) | payer MEDICARE, OTHER, SELFPAY ==
--- NOTE | 2021-08-31 09:08 | BI_ITS ---
MAMMOGRAPHY - BILATERAL SCREENING REASON FOR EXAM: Female, 71 years old. Routine annual screening examination. PERTINENT HISTORY: Sister with breast cancer. Grandmother with breast cancer. TECHNIQUE: Digital bilateral breast francis (3D mammographic acquisition) in the CC and MLO projections. 2-D mediolateral oblique (MLO) and craniocaudad (CC) views of both breasts were obtained. CAD: Full Field Digital Mammography with Computer Added Detection was performed. COMPARISON: Comparison is made with prior study dated 08/24/2020 and 08/15/2019. FINDINGS: Breast Composition: The breasts are heterogeneously dense, which may obscure small masses. There are no dominant masses or suspicious calcifications. Stable small benign-appearing bilateral axillary lymph nodes. No other significant abnormalities are identified. There has been no significant change since the prior study. BI/SCRN MAMM (CAD)W/FRANCIS BILAT IMPRESSION: Stable bilateral screening mammogram. Yearly follow-up mammogram recommended. (A) ASSESSMENT CATEGORY: BIRADS Category 2: Benign. A letter regarding these results will be sent to the patient by the facility within 30 days. Approximately 10% of breast cancers are not detected by mammography. A normal mammogram should not delay biopsy of a clinically suspicious abnormality. [id number] Electronically Signed: Graham Benjamin MD at 10:38 EDT ,
== END | disposition home or self-care (01) ==
LOC: OPBI 09:05
PROVIDERS: PCP Family Medicine; Visit Provider Family Medicine
DX: Z12.31 Encounter for screening mammogram for malignant neoplasm of breast (principal)
CPT/HCPCS: 77063; 77067

== ENCOUNTER → 2022-01-17 | Outpatient (CLI) | payer MEDICARE, OTHER, SELFPAY ==
[2022-01-17 10:12] LABS: Absolute Lymphocyte Count 4.37 X10^3/uL (0.83-4.51); Absolute Neutrophil Count 5.6 X10^3/uL (2.0-7.7); Basophil# 0.11 X10^3/uL; Basophil% 0.9 % (0-1); Eosinophil# 0.39 X10^3/uL; Eosinophils% 3.3 % (0-5); Hematocrit 43.2 % (37-47); Hemoglobin 13.7 g/dL (12.0-15.0); Lymphocyte # 4.37 X10^3/ul (0.83-4.51); Lymphocyte % 36.7 % (19-41); Mean Corp Hgb Conc 31.7 g/dL (32-36); Mean Corpuscular Hgb 29.6 pg (27.0-32.0); Mean Corpuscular Volume 93.3 fL (81-99); Mean Platelet Vol. 9.5 fl (6.2-12.0); Monocyte# 1.39 X10^3/uL; Monocyte% 11.7 % (0-10); NRBC Flagged by Analyzer 0 % (0-5); Neutrophil # 5.64 X10^3/uL (2.7-7.7); Neutrophil % 47.2 % (47-70); Platelet Count 695 K/mm3 (150-450); RBC Distribution Width SD 51.9 fl (35.1-43.9); Red Blood Count 4.63 M/mm3 (4.2-5.4); White Blood Count 11.9 K/mm3 (4.4-11.0)
[2022-01-17 10:28] LABS: Vitamin D,25 Hydroxy 68.9 ng/mL
[2022-01-17 10:29] LABS: ALB/GLOB Ratio 0.9 RATIO (0.9-2.4); AST(SGOT) 21 U/L (15-37); Alanine Aminotransfer ALT/SGPT 32 U/L (13-56); Albumin, Serum 3.5 g/dL (3.2-5.0); Alkaline Phosphatase 92 U/L (45-117); Anion Gap 7 (5-15); BUN 16 mg/dL (7-18); BUN/Creat Ratio 20.9 RATIO (10-20); Calcium,Total 9.1 mg/dL (8.5-10.1); Chloride 104 mmol/L (98-107); Cholesterol 208 mg/dL (200); Creatinine, Serum 0.77 mg/dL (0.55-1.02); EST Glomerular Filtration Rate 79 mL/min (>60); Est Glom Filt Rate - Afr Amer 95 mL/min (>60); Globulin 4.1 g/dL (2.2-4.2); Glucose 87 mg/dL (74-106); High Density Lipoprotein 61 mg/dL; Potassium 3.9 mmol/L (3.5-5.1); Protein, Total 7.6 g/dL (6.4-8.2); Sodium Level 141 mmol/L (136-145); Triglycerides 101 mg/dL; Very Low Density Lipoprotein 20 mg/dL (5-40)
== END | disposition home or self-care (01) ==
LOC: MTLAB 07:18
PROVIDERS: PCP Family Medicine; Referring Provider Family Medicine; Visit Provider Family Medicine
DX: R00.0 Tachycardia, unspecified (principal); Z98.2 Presence of cerebrospinal fluid drainage device; F41.9 Anxiety disorder, unspecified; E78.5 Hyperlipidemia, unspecified; E55.9 Vitamin D deficiency, unspecified
CPT/HCPCS: 36415; 80053; 80061; 82306; 85025

== ENCOUNTER → 2022-05-11 | Outpatient (CLI) | payer MEDICARE, OTHER, SELFPAY ==
--- NOTE | 2022-05-11 15:03 | STRESSREP_ITS ---
Stress Test Report Date: 05/11/2022 Procedure: Exercise tolerance test/imaging study Indications: Chest pain Consent: Per the patient Procedure: The patient exercised on a Jey protocol for 5 minutes achieving a peak heart rate of 148 bpm (100% predicted maximal heart rate) with a peak blood pressure 138/78 mmHg and a peak MET capacity of 7 METs. The baseline ECG demonstrated normal sinus rhythm, early repolarization changes. The peak exercise ECG demonstrated no significant ischemic ST-T changes. EKG during recovery revealed no significant ischemic ST-T changes [There were no cardiac dysrhythmias pretest, during exercise, or recovery]. The functional capacity was considered normal for age. There was [no complaint of chest discomfort during exercise or recovery]. The examination was discontinued secondary to shortness of breath. Impression: 1. Technically adequate (percent predicted maximal heart rate greater than 85%) exercise tolerance test 2. Stress test is negative for exercise-induced EKG changes of ischemia 3. The test test is negative for exercise-induced chest pain 4. Functional capacity is normal for age 5. Nuclear images pending Myocardial perfusion imaging study: Technique: The patient was injected with 11.3 mCi of technetium 99m Cardiolite and subsequently rest SPECT Cardiolite nuclear imaging was obtained in the horizontal long, vertical long, and short axis views. The patient exercised on a Jey protocol. Please see above for details. The patient was injected with 32.7 mCi of technetium 99m Cardiolite and subsequently stress SPECT Cardiolite nuclear imaging was obtained in the horizontal long, vertical long, and short axis views. A gated Cardiolite study at peak stress was obtained. Interpretation: Rest and stress SPECT Cardiolite nuclear imaging status post realignment, normalization, and attenuation correction, demonstrates overall normal myocardial radioisotope uptake. The gated Cardiolite study demonstrates no significant regional wall motion abnormalities. The reported LVEF is greater than 70%. Impression: 1. There is no evidence of significant ischemia or infarction. 2. The gated Cardiolite study reports an LVEF of greater than 70%. This note was generated with [employer] Guide software. It may contain incorrect words, spelling, and punctuation that were not noted in checking the note before signing.
== END | disposition home or self-care (01) ==
PROVIDERS: PCP Family Medicine; Visit Provider Family Medicine
DX: R07.9 Chest pain, unspecified (principal)
CPT/HCPCS: 78452; 93017; A9500; A4216

== ENCOUNTER → 2022-05-23 | Outpatient (CLI) | payer MEDICARE, OTHER, SELFPAY ==
[2022-05-23 16:02] LABS: Anion Gap 9 (5-15); BUN 11 mg/dL (7-18); BUN/Creat Ratio 14.5 RATIO (10-20); Calcium,Total 9.4 mg/dL (8.5-10.1); Chloride 102 mmol/L (98-107); Creatinine, Serum 0.76 mg/dL (0.55-1.02); EST Glomerular Filtration Rate 79 mL/min (>60); Est Glom Filt Rate - Afr Amer 96 mL/min (>60); Glucose 106 mg/dL (74-106); Magnesium 2.1 mg/dL (1.6-2.6); Potassium 4.3 mmol/L (3.5-5.1); Sodium Level 139 mmol/L (136-145); Thyroid Stim Hormone (TSH) 1.33 uIU/mL (0.358-3.74)
== END | disposition home or self-care (01) ==
LOC: BFHLAB 13:09
PROVIDERS: PCP Family Medicine; Visit Provider Family Medicine
DX: R53.83 Other fatigue (principal); M62.838 Other muscle spasm; R29.0 Tetany
CPT/HCPCS: 36415; 80048; 82330; 83735; 83970; 84443

== ENCOUNTER → 2022-08-28 | Outpatient (CLI) | payer MEDICARE, OTHER, SELFPAY ==
--- NOTE | 2022-08-28 08:21 | NM_ITS ---
CLINICAL: 72-year-old female with history of clinical gastroparesis. SEMI-SOLID PHASE 99m Tc SULFUR COLLOID GASTRIC EMPTYING STUDY COMPARISON: None available FINDINGS: The patient was administered 1.1 mCi of 99m Tc sulfur colloid mixed with oatmeal and consumed per os. Image acquisitions in the anterior-posterior projections were obtained for 60 minutes. There is prompt visualization of the stomach. There is no gastroesophageal reflux identified. The T ? raw data emptying was calculated to be 28.04 minutes, (Normal: 12-56 minutes). NM/Gastric Emptying Study IMPRESSION: 1. NORMAL 99m Tc sulfur colloid semi-solid phase (oatmeal) gastric emptying imaging examination. A. There is normal and preserved semi-solid phase gastric emptying compared to normal controls. (Patel et al, J Nucl Med Tech 38: 186, 2010). Electronically Signed: Remington Bhakta, at 22:13 EDT ,
== END | disposition home or self-care (01) ==
LOC: NM 08:20
PROVIDERS: PCP Family Medicine; Referring Provider Internal Medicine Gastroenterology; Visit Provider Internal Medicine Gastroenterology
DX: R11.0 Nausea (principal)
CPT/HCPCS: 78264; A9541

== ENCOUNTER → 2022-10-03 | Outpatient (CLI) | payer MEDICARE, OTHER, SELFPAY ==
--- NOTE | 2022-10-03 10:15 | BI_ITS ---
MAMMOGRAPHY - BILATERAL SCREENING REASON FOR EXAM: Female, 72 years old. Routine annual screening examination. PERTINENT HISTORY: Sister with breast cancer. Grandmother with breast cancer. TECHNIQUE: Digital bilateral breast francis (3D mammographic acquisition) in the CC and MLO projections. 2-D mediolateral oblique (MLO) and craniocaudad (CC) views of both breasts were obtained. CAD: Full Field Digital Mammography with Computer Added Detection was performed. COMPARISON: Comparison is made with prior study of August 31, 2021 and August 24, 2020. FINDINGS: Breast Composition: The breasts are heterogeneously dense, which may obscure small masses. There are no dominant masses or suspicious calcifications. Stable small benign-appearing bilateral axillary lymph nodes. No other significant abnormalities are identified. There has been no significant change since the prior study. BI/SCRN MAMM (CAD)W/FRANCIS BILAT IMPRESSION: Stable bilateral screening mammogram. Yearly follow-up mammogram recommended. (A) ASSESSMENT CATEGORY: BIRADS Category 2: Benign. A letter regarding these results will be sent to the patient by the facility within 30 days. Approximately 10% of breast cancers are not detected by mammography. A normal mammogram should not delay biopsy of a clinically suspicious abnormality. [id number] Electronically Signed: Graham Benjamin MD at 11:04 EDT ,
== END | disposition home or self-care (01) ==
LOC: OPBI 10:15
PROVIDERS: PCP Family Medicine; Visit Provider Family Medicine
DX: Z12.31 Encounter for screening mammogram for malignant neoplasm of breast (principal)
CPT/HCPCS: 77063; 77067

== ENCOUNTER 2022-10-30 05:33 | Day surgery (SDC) | payer MEDICARE, OTHER, SELFPAY ==
--- NOTE | 2022-10-27 | IMM_PTH ---
PATIENT: JASE FARRIS LOC: EN U#:[id number] AGE/SX: 72/F ROOM: RE10/30/[address]: Dr. Fernando Holden DO : 1950 BED: DIS: 10/30/2022 SPEC #: [id number] RECD: 10/30/22 14:53 STATUS: BOYD REQ #: [id number] LISA: 10/27/22 00:[address]: Fernando Holden DEPT: IMMUNOHISTOCHEMISTRY RECD BY: Danya Ardon ENTERED: 10/30/22 14:53 SP TYPE: IMMUNO OTHR DR: Dr. Buffy Wong MD Tissues: B - Gastric mucous membrane Procedures: H Pylori (initial) PHYSICIAN & INSTITUTION [place] [id number] SPECIMEN INFORMATION: Tissue Source: B. Gastric antrum Clinical Info: Nausea Specimen Number: [id number] CPT code: 43881 METHODOLOGY: Deparaffinized sections of prefer/formalin-fixed tissue or PAP/DQ stained slides are incubated with monoclonal/polyclonal antibodies/oligonucleotide probes. Localization is made via biotin free immunoperoxidase method. Appropriate controls are performed and reacted as expected. Results on target cell population are indicated in the following table: RESULTS: ANTIBODY / CLONE RESULT H Pylori (polyclonal) negative These tests were developed and their performance characteristics determined by [facility]. They may not have been cleared or approved by the U.S. Food and Drug Administration. The FDA has determined that such clearance or approval is not necessary. The above immunohistochemical/dualISH markers are ordered and reviewed by the Pathologist. INTERPRETATION: B. Gastric antrum, biopsy: Negative for Helicobacter pylori organisms. SJ:venancio 11/01/22
[2022-10-30] VITALS (7 sets, daily range): BP systolic 110–117; BP diastolic 60–85; PULSE 68–72; RESP 16–18; TEMP 35.9–36.4; O2SAT 93–98; BMI 21.4
[2022-10-30] MEDS: Lactated Ringers 1,000 ML 15 ML IV (06:19)
--- NOTE | 2022-10-30 06:24 | PCM.HP.BLA ---
History and Physical Date of Admission: 10/30/22 72 F who presents to the office today for PMH irregular heartbeat; normal pressure hydrocephalus s/p ventricular shunt drain into peritoneum placed 2018; anxiety. 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 FH Sister/grandmother breast cancer, Sister Crohn?s versus celiac. PCP OV 05.23.22 with chronic nausea and frequent BM with one episode of loose stools with tenesmus. ? Cologuard 2021 WNL *BGI established 08.18.22 since placement of shunt she has nausea/bloating in the morning drinking carbonated beverage is helpful. Does not feel that she eats a small amount or has early satiety. BM are normal each morning with complete evacuation without straining; notes she has to spend a lot of time cleansing following movement. ROS Const Constitutional: Positive for fatigue, headache(s), decreased energy, malaise and weakness ENT ENT: Positive for headache(s) Resp Respiratory: Positive for cough Neuro Neurology: Positive for weakness and headache(s) Endo Endocrine: Positive for fatigue Exam Const General: cooperative, healthy appearing, comfortable and no acute distress Nutritional Appearance: average body habitus and well nourished Orientation: alert, awake and oriented x3 HENMT Head: normal to inspection Ears: hearing grossly normal bilaterally, external ears normal, TM's normal bilaterally and EAC's normal Nose: external nose normal, nares normal, septum normal and nasal discharge clear Face and sinus: normal facial exam, sinuses nontender and face symmetric Mouth: oral mucosae normal, lip normal, tongue normal and moist mucous membranes Teeth and gingiva: dentition normal and gingiva normal Throat: posterior oropharynx normal, tonsils normal, uvula midline and no postnasal drainage Eyes General: appearance normal, both eyes and all related structures Neck Neck: normal visual inspection, full ROM, no lymphadenopathy, no meningeal signs and supple Neck mass: No Thyroid: thyroid normal Lymphatic: no lymphadenopathy noted Chest Chest palpation & inspection: normal inspection of the chest Resp Effort & Inspection: normal respiratory effort, able to speak in complete sentences, symmetric chest movement and cough Quality of cough: wet (nonproductive) Auscultation: Bilateral: Clear to Auscultation Cardio Palpation: normal PMI Rate: regular rate Rhythm: regular rhythm Heart Sounds: S1 normal, S2 normal, no gallops, no murmurs and no rubs Pulses: radial pulses present GI Inspection: normal to inspection Palpation: soft and nontender Skin General: no rashes or lesions noted Neuro General: patient alert, patient awake, patient oriented x3 and gait normal Cognition: normal cognition Speech: speech normal Gait: normal gait Motor: muscle tone normal throughout Sensory Exam: no sensory deficits noted Psych Appearance: grossly normal Mental Status: mental status grossly normal Mood: congruent mood Affect: normal affect Speech and Movement: speech and movement normal Attitude: cooperative Thought Process: normal Thought Content: normal Judgment: judgment good Quality Reporting Tobacco Screening ([facility] 138) Smoking Status: Former smoker Assessment and Plan Assessment and Plan (1) Nausea: Status: Chronic Plan: Lower EXTR. She is darkening her from a ventriculoperitoneal shunt placement in the stomach and of acid-base balance issues. I do not think she has a migrated shunt at this time due to no peritoneal signs on examination and talking to her and the clinic today. She is at risk for gastroparesis secondary to poor admixture and instrumentation in the stomach. She is also risk of mitral overgrowth, peptic ulcer disease. She will undergo an upper endoscopy to evaluate upper GI tract. We will also get biochemical testing and evaluation for possible gastric motility disorder. Orders: Orders Gastric Emptying Study Today R11.0 - Nausea I have examined the patient and the H&P has been reviewed. There are no clinical changes since date of exam.
--- NOTE | 2022-10-30 06:30 | EGD_PTH ---
PATIENT: JASE FARRIS LOC: EN U#:[id number] AGE/SX: 72/F ROOM: RE10/30/[address]: Dr. Fernando Holden DO : 1950 BED: DIS: 10/30/2022 SPEC #: [id number] RECD: 10/30/22 10:55 STATUS: BOYD REeRji #: [id number] LISA: 10/30/22 06:[address]: Fernando Holden DEPT: SURGICAL PATHOLOGY RECD BY: Orly Fuentes ENTERED: 10/30/22 11:43 SP TYPE: EGD BIOPSY SHMUEL DR: Dr. Buffy Wong MD Tissues: A - Duodenum, NOS B - Gastric mucous membrane C - Ileum, NOS D - COLON BIOPSY E - Sigmoid colon biopsy Procedures: Surgery Specimen Level IV HEADER OPERATION: Colonoscopy, EGD biopsy PRE-OP DIAGNOSIS: Nausea TISSUE SUBMITTED: A. Duodenum biopsy, B. Gastric antrum, C. Terminal ileum, D. Random colon, E. Sigmoid colon MICROSCOPIC DIAGNOSIS A. Duodenum biopsy: Fragments of duodenal mucosa, no pathologic diagnosis. B. Gastric antrum, biopsy: Mild gastritis. See microscopic description and comment. C. Terminal ileum, biopsy: Fragments of small intestinal mucosa, no pathologic diagnosis. D. Random colon, biopsy: Fragments of colonic mucosa, no pathologic diagnosis. E. Sigmoid colon, biopsy: A fragment of colonic mucosa, no pathologic diagnosis. SJ: 10/31/2022 COMMENT Immunohistochemistry ([id number]) for H. Pylori will be performed and results will be reported separately. MICROSCOPIC DESCRIPTION Slides are reviewed. The specimen shows fragments of gastric mucosa with chronic inflammatory cell infiltrates in the lamina propria consisting of lymphocytes and plasma cells, consistent with mild chronic gastritis. GROSS DESCRIPTION A. Received is one container labeled with the patient name and designated duodenum. The specimen consists of one irregular fragment of light molina soft tissue that measures 0.5 x0.5 x 0.1 cm. The specimen is totally submitted in one cassette. Received is one container labeled with the patient name and designated gastric antrum. The specimen consists of two irregular fragments of light molina soft tissue that in aggregate measure 0.6 x 0.3 x 0.1 cm. The specimen is totally submitted in one cassette. / Received is one container labeled with the patient name and designated terminal ileum. The specimen consists of multiple irregular fragments of light molina soft tissue that in aggregate measure 1.0 x 0.3 x 0.1 cm. The specimen is totally submitted in one cassette. Received is one container labeled with the patient name and designated random colon biopsy. The specimen consists of multiple irregular fragments of light molina soft tissue that in aggregate measure 1.5 x 0.5 x 0.1 cm. The specimen is totally submitted in one cassette. / Received is one container labeled with the patient name and designated sigmoid colon biopsy. The specimen consists of one irregular fragment of light molina soft tissue that measures 0.2 x 0.2 x 0.1 cm. The specimen is totally submitted in one cassette. SJ: 10/30/22 TC: 3 CPT: 69829 x5
--- NOTE | 2022-10-30 07:15 | OP.EGD_ITS ---
Patient Name: Mickie Samson Procedure Date: 10/30/2022 6:20 AM Date of : 1950 Age: 72 Procedure: Upper GI endoscopy Indications: Epigastric abdominal pain Providers: Fernando Holden DO Referring MD: Buffy Wong Medicines: Monitored Anesthesia Care Patient Profile: This is a 72 year old female. Refer to note in patient chart for documentation of history and physical. Patient has symptoms of chronic abdominal cramping and chronic epigastric abdominal pain. Complications: No immediate complications. Procedure: Pre-Anesthesia Assessment: - Prior to the procedure, a History and Physical was performed, and patient medications and allergies were reviewed. The patient is competent. The risks and benefits of the procedure and the sedation options and risks were discussed with the patient. All questions were answered and informed consent was obtained. Patient identification and proposed procedure were verified by the physician. Mental Status Examination: normal. Respiratory Examination: clear to auscultation. Prophylactic Antibiotics: The patient does not require prophylactic antibiotics. Prior Anticoagulants: The patient has taken no previous anticoagulant or antiplatelet agents. ASA Grade Assessment: II - A patient with mild systemic disease. After reviewing the risks and benefits, the patient was deemed in satisfactory condition to undergo the procedure. The anesthesia plan was to use monitored anesthesia care (MAC). Immediately prior to administration of medications, the patient was re-assessed for adequacy to receive sedatives. The heart rate, respiratory rate, oxygen saturations, blood pressure, adequacy of pulmonary ventilation, and response to care were monitored throughout the procedure. The physical status of the patient was re-assessed after the procedure. After obtaining informed consent, the endoscope was passed under direct vision. Throughout the procedure, the patient's blood pressure, pulse, and oxygen saturations were monitored continuously. The colonoscope was introduced through the mouth, and advanced to the second part of duodenum. The upper GI endoscopy was accomplished without difficulty. The patient tolerated the procedure well. Scope In: 6:41:25 AM Scope Out: 6:46:28 AM Total Procedure Duration Time 0 hours 5 minutes 3 seconds Findings: The examined esophagus was normal. Diffuse moderately erythematous mucosa without bleeding was found in the gastric body, in the gastric antrum, in the prepyloric region of the stomach and at the pylorus. Biopsies were taken with a cold forceps for histology. Verification of patient identification for the specimen was done. Estimated blood loss was minimal. Patchy mildly erythematous mucosa without active bleeding and with no stigmata of bleeding was found in the duodenal bulb. Biopsies were taken with a cold forceps for histology. Verification of patient identification for the specimen was done. Estimated blood loss was minimal. Impression: - Normal esophagus. - Erythematous mucosa in the gastric body, antrum, prepyloric region of the stomach and pylorus. Biopsied. - Erythematous duodenopathy. Biopsied. Recommendation: - Discharge patient to home. - Resume previous diet. - Continue present medications. - Await pathology results. Procedure Code(s): --- Professional --- 24933, Esophagogastroduodenoscopy, flexible, transoral; with biopsy, single or multiple CPT copyright 2017 [employer]. All rights reserved. The codes documented in this report are preliminary and upon alterations tailor review may be revised to meet current compliance requirements. Fernando Holden DO 10/30/2022 7:15:10 AM This report has been signed electronically. Number of Addenda: 0 Note Initiated On: 10/30/2022 6:20 AM
--- NOTE | 2022-10-30 07:16 | OP.CCLET_ITS ---
10/30/2022 Buffy Wong [id number] [facility] [address] [address] Re : Upper GI endoscopy procedure for Mickie Samson Dear Dr. Wong This procedure was performed on Sunday, October 30, 2022. My impressions and recommendations are as follows: Impressions : - Normal esophagus. - Erythematous mucosa in the gastric body, antrum, prepyloric region of the stomach and pylorus. Biopsied. - Erythematous duodenopathy. Biopsied. Recommendations : - Discharge patient to home. - Resume previous diet. - Continue present medications. - Await pathology results. My findings are described in the full procedure note, which is enclosed. If I can be of further assistance, please feel free to contact me at . Sincerely, Fernando Holden, 10/30/2022 7:15:10 AM This report has been signed electronically.
--- NOTE | 2022-10-30 07:20 | OP.COLON_ITS ---
Patient Name: Mickie Samson Procedure Date: 10/30/2022 6:46 AM Date of : 1950 Age: 72 Procedure: Colonoscopy Indications: Generalized abdominal pain Providers: Fernando Holden DO Referring MD: Buffy Wong Medicines: Monitored Anesthesia Care Patient Profile: This is a 72 year old female. Refer to note in patient chart for documentation of history and physical. Patient has symptoms of chronic abdominal cramping and chronic epigastric abdominal pain. Last Colonoscopy: several years ago. Complications: No immediate complications. Procedure: Pre-Anesthesia Assessment: - Prior to the procedure, a History and Physical was performed, and patient medications and allergies were reviewed. The patient is competent. The risks and benefits of the procedure and the sedation options and risks were discussed with the patient. All questions were answered and informed consent was obtained. Patient identification and proposed procedure were verified by the physician. Mental Status Examination: normal. Respiratory Examination: clear to auscultation. Prophylactic Antibiotics: The patient does not require prophylactic antibiotics. Prior Anticoagulants: The patient has taken no previous anticoagulant or antiplatelet agents. ASA Grade Assessment: II - A patient with mild systemic disease. After reviewing the risks and benefits, the patient was deemed in satisfactory condition to undergo the procedure. The anesthesia plan was to use monitored anesthesia care (MAC). Immediately prior to administration of medications, the patient was re-assessed for adequacy to receive sedatives. The heart rate, respiratory rate, oxygen saturations, blood pressure, adequacy of pulmonary ventilation, and response to care were monitored throughout the procedure. The physical status of the patient was re-assessed after the procedure. After I obtained informed consent, the scope was passed under direct vision. Throughout the procedure, the patient's blood pressure, pulse, and oxygen saturations were monitored continuously. The colonoscope was introduced through the anus and advanced to the cecum, identified by appendiceal orifice and ileocecal valve. The colonoscopy was performed without difficulty. The patient tolerated the procedure well. The quality of the bowel preparation was good. Scope In: 6:48:36 AM Scope Withdrawal Time 0 hours 12 minutes 2 seconds Scope Out: 7:03:27 AM Total Procedure Duration Time 0 hours 14 minutes 51 seconds Findings: The perianal and digital rectal examinations were normal. Multiple small and large-mouthed diverticula were found in the recto-sigmoid colon, sigmoid colon and descending colon. Biopsies were taken with a cold forceps for histology. Verification of patient identification for the specimen was done. Estimated blood loss was minimal. An area of mildly congested mucosa was found in the descending colon, in the transverse colon and in the ascending colon. Biopsies were taken with a cold forceps for histology. Verification of patient identification for the specimen was done. Estimated blood loss was minimal. The terminal ileum contained a few ulcers. No bleeding was present. Biopsies were taken with a cold forceps for histology. Verification of patient identification for the specimen was done. Estimated blood loss was minimal. Impression: - Diverticulosis in the recto-sigmoid colon, in the sigmoid colon and in the descending colon. Biopsied. - Congested mucosa in the descending colon, in the transverse colon and in the ascending colon. Biopsied. - A few ulcers in the terminal ileum. Biopsied. Recommendation: - Discharge patient to home. - Resume previous diet. - Continue present medications. - Await pathology results. - Repeat colonoscopy in 5 years for surveillance based on pathology results. - MRI enterography Procedure Code(s): --- Professional --- 63448, Colonoscopy, flexible; with biopsy, single or multiple CPT copyright 2017 [employer]. All rights reserved. The codes documented in this report are preliminary and upon casing machine operator review may be revised to meet current compliance requirements. Fernando Holden DO 10/30/2022 7:20:24 AM This report has been signed electronically. Number of Addenda: 0 Note Initiated On: 10/30/2022 6:46 AM
--- NOTE | 2022-10-30 07:21 | OP.CCLET_ITS ---
10/30/2022 Buffy Wong [id number] [address] Re : Colonoscopy procedure for Mickie Samson Dear Dr. Wong This procedure was performed on Sunday, October 30, 2022. My impressions and recommendations are as follows: Impressions : - Diverticulosis in the recto-sigmoid colon, in the sigmoid colon and in the descending colon. Biopsied. - Congested mucosa in the descending colon, in the transverse colon and in the ascending colon. Biopsied. - A few ulcers in the terminal ileum. Biopsied. Recommendations : - Discharge patient to home. - Resume previous diet. - Continue present medications. - Await pathology results. - Repeat colonoscopy in 5 years for surveillance based on pathology results. - MRI enterography My findings are described in the full procedure note, which is enclosed. If I can be of further assistance, please feel free to contact me at . Sincerely, Fernando Holden, 10/30/2022 7:20:24 AM This report has been signed electronically.
== END 2022-10-30 08:00 | disposition home or self-care (01) ==
LOC: EN 05:33 → AC 05:35
PROVIDERS: PCP Family Medicine; Referring Provider Family Medicine; Visit Provider Internal Medicine Gastroenterology
PROC: 0DJD8ZZ Inspection of Lower Intestinal Tract, Via Natural or Artificial Opening Endoscopic (ICD-10-PCS; CPT 45378; principal; 2022-10-30 06:25)
DX: K63.3 Ulcer of intestine (principal); K29.70 Gastritis, unspecified, without bleeding; K31.89 Other diseases of stomach and duodenum; K57.30 Diverticulosis of large intestine without perforation or abscess without bleeding; F41.9 Anxiety disorder, unspecified; M50.321 Other cervical disc degeneration at C4-C5 level; F32.A Depression, unspecified; M99.01 Segmental and somatic dysfunction of cervical region; M99.02 Segmental and somatic dysfunction of thoracic region; Z79.899 Other long term (current) drug therapy; Z87.891 Personal history of nicotine dependence; Z86.16 Personal history of COVID-19
CPT/HCPCS: 43239; 45380; 88305; 88342; J7120; J2405

== ENCOUNTER → 2022-11-06 | Outpatient (CLI) | payer MEDICARE, OTHER, SELFPAY ==
[2022-11-06 09:15] LABS: Absolute Lymphocyte Count 4.13 X10^3/uL (0.83-4.51); Absolute Neutrophil Count 5.1 X10^3/uL (2.0-7.7); Basophil# 0.15 X10^3/uL; Basophil% 1.4 % (0-1); Eosinophil# 0.34 X10^3/uL; Eosinophils% 3.1 % (0-5); Hematocrit 44.8 % (37-47); Hemoglobin 14.1 g/dL (12.0-15.0); Lymphocyte # 4.13 X10^3/ul (0.83-4.51); Mean Corp Hgb Conc 31.5 g/dL (32-36); Mean Corpuscular Hgb 29.2 pg (27.0-32.0); Mean Corpuscular Volume 92.8 fL (81-99); Mean Platelet Vol. 9.1 fl (6.2-12.0); Monocyte# 1.12 X10^3/uL; Monocyte% 10.3 % (0-10); NRBC Flagged by Analyzer 0 % (0-5); Neutrophil % 46.8 % (47-70); Platelet Count 716 K/mm3 (150-450); RBC Distribution Width CV 14.5 % (11.6-14.6); Red Blood Count 4.83 M/mm3 (4.2-5.4); White Blood Count 10.9 K/mm3 (4.4-11.0)
[2022-11-06 09:20] LABS: Erythrocyte Sedimentation Rate 20 mm/hr (0-30)
[2022-11-06 09:52] LABS: ALB/GLOB Ratio 0.8 RATIO (0.9-2.4); AST(SGOT) 20 U/L (15-37); Alanine Aminotransfer ALT/SGPT 21 U/L (13-56); Albumin, Serum 3.5 g/dL (3.2-5.0); Alkaline Phosphatase 93 U/L (45-117); Anion Gap 2 (5-15); BUN 14 mg/dL (7-18); BUN/Creat Ratio 17.6 RATIO (10-20); CRP 7.08 mg/L (0.0-3.0); Calcium,Total 9.2 mg/dL (8.5-10.1); Chloride 104 mmol/L (98-107); EST Glomerular Filtration Rate 75 mL/min (>60); Est Glom Filt Rate - Afr Amer 91 mL/min (>60); Globulin 4.2 g/dL (2.2-4.2); Glucose 89 mg/dL (74-106); LDH 154 U/L (84-246); Potassium 4.2 mmol/L (3.5-5.1); Protein, Total 7.7 g/dL (6.4-8.2); Sodium Level 137 mmol/L (136-145)
[2022-11-07 16:10] LABS: Anti-Centromere B Ab <0.2 AI (0.0-0.9); Anti-Chromatin <0.2 AI (0.0-0.9); Anti-Jo <0.2 AI (0.0-0.9); Anti-Scleroderma-70 AB <0.2 AI (0.0-0.9); Anti-dsDNA Ab <1 IU/mL (0-9); RNP Ab <0.2 AI (0.0-0.9); SJOGREN'S Anti-SS-A test < 0.2 AI (0.0-0.9); SJOGREN'S Anti-SS-B test < 0.2 AI (0.0-0.9); Smith Ab <0.2 AI (0.0-0.9)
[2022-11-09 20:08] LABS: Albumin 3.6 g/dL (2.9-4.4); Alpha-1-Globulins 0.3 g/dL (0.0-0.4); Alpha-2-Globulins 0.8 g/dL (0.4-1.0); Cytoplasmic Ab (C-ANCA) <1:20 titer (Neg:<1:20); Endomysial Antibody IgA Negative (Negative); Gamma Globulin 1.2 g/dL (0.4-1.8); Immunoglobulin A 442 mg/dL (64-422); Immunoglobulin E 13 IU/mL (6-495); Immunoglobulin G 1226 mg/dL (586-1602); Immunoglobulin M 51 mg/dL (26-217); PROEL- TOTAL PROTEIN 7.1 g/dL (6.0-8.5); Perinuclear Ab (P-ANCA) <1:20 titer (Neg:<1:20); t-Transglutaminase IgA <2 U/mL (0-3)
== END | disposition home or self-care (01) ==
PROVIDERS: PCP Family Medicine; Referring Provider Internal Medicine Gastroenterology; Visit Provider Internal Medicine Gastroenterology
DX: R11.0 Nausea (principal)
CPT/HCPCS: 36415; 80053; 82784; 82785; 83516; 83615; 84165; 85025; 85652; 86140; 86225; 86235; 86255; 86256; 86334

== ENCOUNTER → 2023-03-03 | Outpatient (CLI) | payer MEDICARE, OTHER, SELFPAY ==
--- NOTE | 2023-03-03 09:49 | CT_ITS ---
EXAM: CT CHEST, LUNG CANCER SCREENING WITHOUT INTRAVENOUS CONTRAST CLINICAL INDICATION: SCREENING TECHNIQUE: Helically acquired images were obtained of the chest without intravenous contrast using low dose (LDCT) lung cancer screening protocol. This CT exam was performed using one or more of the following dose reduction techniques: automated exposure control, adjustment of the mA and/or kV according to patient size, and/or use of iterative reconstruction technique. COMPARISON: 09/17/2018 FINDINGS: LUNGS AND PLEURAL SPACES: There is minimal scarring lung apices which is stable. No mass. No pleural effusion or thickening. No pneumothorax. HEART: Unremarkable. Heart size is normal. No pericardial effusion. No significant coronary artery calcifications. MEDIASTINUM: Unremarkable. No mediastinal or hilar adenopathy. Esophagus is unremarkable. No hiatal hernia. THYROID: Unremarkable. No thyroid lesions. BONES/JOINTS: Unremarkable. No suspicious lytic or blastic abnormality. VASCULATURE: Unremarkable. Thoracic aorta is non-dilated. LYMPH NODES: Unremarkable. No enlarged lymph nodes. TUBES, LINES AND DEVICES: There is a [employer] shunt catheter tubing over the right chest. CT/Low Dose CT Lung Screening IMPRESSION: No acute abnormalities. There has been no change from the reference examination. Lung-RADS score: 1 - Recommend continued annual screening with a low-dose CT (LDCT) in 12 months. Electronically Signed: Andrews Elder MD at 22:06 EST ,
== END | disposition home or self-care (01) ==
LOC: CT 09:47
PROVIDERS: PCP Family Medicine; Referring Provider Family Medicine; Visit Provider Family Medicine
DX: Z12.2 Encounter for screening for malignant neoplasm of respiratory organs (principal); Z87.891 Personal history of nicotine dependence
CPT/HCPCS: 71271

== ENCOUNTER → 2023-04-18 | Outpatient (CLI) | payer MEDICARE, OTHER, SELFPAY ==
--- NOTE | 2023-04-18 09:33 | US_ITS ---
STUDY: SUPERFICIAL ULTRASOUND - RIGHT UPPER EXTREMITY REASON FOR EXAM: Female, 72 years old. Palpable lump TECHNIQUE: A superficial ultrasound was performed with real-time and static baneags-scale imaging. COMPARISON: None. FINDINGS: Sonographic evaluation of the right upper arm at the area of concern shows a well-defined likely subcutaneous lipoma measuring 4.1 x 3.7 x 1.9 cm. There is no hyperemia, evidence of fluid or architectural distortion noted. US/Ext Non Vasc Limited/Soft Tiss IMPRESSION: Palpable lump likely corresponds to a well-defined subcutaneous lipoma. Electronically Signed: Ramon Copeland MD at 10:57 EST ,
== END | disposition home or self-care (01) ==
LOC: US 09:31
PROVIDERS: PCP Family Medicine; Referring Provider Family Medicine; Visit Provider Family Medicine
DX: M79.9 Soft tissue disorder, unspecified (principal)
CPT/HCPCS: 76882

== ENCOUNTER → 2023-09-26 | Outpatient (CLI) | payer MEDICARE, OTHER, SELFPAY ==
[2023-09-26 11:37] LABS: Absolute Lymphocyte Count 3.33 X10^3/uL (0.83-4.51); Absolute Neutrophil Count 6.4 X10^3/uL (2.0-7.7); Basophil# 0.11 X10^3/uL; Eosinophil# 0.15 X10^3/uL; Eosinophils% 1.3 % (0-5); Hematocrit 42.6 % (37-47); Hemoglobin 13.7 g/dL (12.0-15.0); Lymphocyte # 3.33 X10^3/ul (0.83-4.51); Mean Corp Hgb Conc 32.2 g/dL (32-36); Mean Corpuscular Hgb 29.8 pg (27.0-32.0); Mean Corpuscular Volume 92.8 fL (81-99); Mean Platelet Vol. 9.3 fl (6.2-12.0); Monocyte# 1.47 X10^3/uL; Monocyte% 12.8 % (0-10); NRBC Flagged by Analyzer 0 % (0-5); Neutrophil % 55.6 % (47-70); Platelet Count 736 K/mm3 (150-450); RBC Distribution Width CV 14.8 % (11.6-14.6); RBC Distribution Width SD 50.5 fl (35.1-43.9); Red Blood Count 4.59 M/mm3 (4.2-5.4); White Blood Count 11.5 K/mm3 (4.4-11.0)
[2023-09-26 12:22] LABS: Anion Gap 5 (5-15); BUN 18 mg/dL (7-18); BUN/Creat Ratio 24.4 RATIO (10-20); Calcium,Total 9.3 mg/dL (8.5-10.1); Chloride 105 mmol/L (98-107); Creatinine, Serum 0.74 mg/dL (0.55-1.02); EST Glomerular Filtration Rate 82 mL/min (>60); Est Glom Filt Rate - Afr Amer 99 mL/min (>60); Glucose 92 mg/dL (74-106); Magnesium 2.2 mg/dL (1.6-2.6); Potassium 4.3 mmol/L (3.5-5.1); Sodium Level 141 mmol/L (136-145); Thyroid Stim Hormone (TSH) 1.37 uIU/mL (0.358-3.74)
== END | disposition home or self-care (01) ==
LOC: LAB 10:49
PROVIDERS: PCP Family Medicine; Referring Provider Internal Medicine Cardiovascular Disease; Visit Provider Internal Medicine Cardiovascular Disease
DX: D72.829 Elevated white blood cell count, unspecified (principal); I49.9 Cardiac arrhythmia, unspecified
CPT/HCPCS: 36415; 80048; 83735; 84443; 85025

== ENCOUNTER → 2023-10-03 | Outpatient (CLI) | payer MEDICARE, OTHER, SELFPAY | END | disposition home or self-care (01) | LOC: PSN 08:52 | PROVIDERS: PCP Family Medicine; Referring Provider Internal Medicine Cardiovascular Disease; Visit Provider Internal Medicine Cardiovascular Disease | DX: R07.9 Chest pain, unspecified (principal); I49.9 Cardiac arrhythmia, unspecified | CPT/HCPCS: 93225; 93226 ==

== ENCOUNTER → 2023-10-05 | Outpatient (CLI) | payer MEDICARE, OTHER, SELFPAY ==
--- NOTE | 2023-10-05 09:06 | BI_ITS ---
MAMMOGRAPHY - BILATERAL SCREENING REASON FOR EXAM: Female, 73 years old. Routine annual screening examination. PERTINENT HISTORY: Sister with breast cancer. Grandmother with breast cancer. TECHNIQUE: Digital bilateral breast francis (3D mammographic acquisition) in the CC and MLO projections. 2-D mediolateral oblique (MLO) and craniocaudad (CC) views of both breasts were obtained. CAD: Full Field Digital Mammography with Computer Added Detection was performed. COMPARISON: Comparison is made with prior study dated October 03, 2022 and August 31, 2021. FINDINGS: Breast Composition: The breasts are heterogeneously dense, which may obscure small masses. There are no dominant masses or suspicious calcifications. Stable benign-appearing bilateral axillary lymph nodes. No other significant abnormalities are identified. There has been no significant change since the prior study. BI/SCRN MAMM (CAD)W/FRANCIS BILAT IMPRESSION: Stable bilateral screening mammogram. Yearly follow-up mammogram recommended. (A) ASSESSMENT CATEGORY: BIRADS Category 2: Benign. A letter regarding these results will be sent to the patient by the facility within 30 days. Approximately 10% of breast cancers are not detected by mammography. A normal mammogram should not delay biopsy of a clinically suspicious abnormality. [id number] Electronically Signed: Graham Benjamin MD at 9:47 EDT ,
== END | disposition home or self-care (01) ==
LOC: OPBI 09:03
PROVIDERS: PCP Family Medicine; Referring Provider Family Medicine; Visit Provider Family Medicine
DX: Z12.31 Encounter for screening mammogram for malignant neoplasm of breast (principal); Z80.3 Family history of malignant neoplasm of breast
CPT/HCPCS: 77063; 77067

== ENCOUNTER → 2023-10-22 | Outpatient (CLI) | payer MEDICARE, OTHER, SELFPAY ==
--- NOTE | 2023-10-22 06:57 | ECHOD_ITS ---
Reason For Study: Chest Pain Procedure This was a 2D Doppler, Color Flow transthoracic echocardiogram. Exam performed in department. Left Ventricle Normal LV size. Left ventricular systolic function is normal. The left ventricular ejection fraction is 60 %. Stage 2 diastolic dysfunction. No regional wall motion abnormalities noted. Right Ventricle Normal RV size. Normal systolic function. Atria Normal left atrium. Normal right atrium. Mitral Valve Normal mitral valve. Tricuspid Valve Normal tricuspid valve. Mild (1+) tricuspid valve insufficiency. Pulmonary artery systolic pressure is 25 mmHg. Aortic Valve Trisinus/trileaflet aortic valve. Pulmonic Valve Normal pulmonic valve. Great Vessels Normal aortic root. The pulmonary artery is normal size. Normal inferior vena cava. Pericardium/Pleural No pericardial effusion. MMode/2D Measurements & Calculations LVIDd: 4.1 cm IVSd: 0.95 cm Ao root diam: 2.8 cm LVIDs: 2.8 cm LVPWd: 0.82 cm LA dimension: 3.2 cm RVDd: 3.1 cm FS: 30.5 % LAV(MOD-bp): 35.8 ml LVAd ap4: 23.8 cm2 SV(MOD-sp4): 39.1 ml LAV(MOD-bp) Indexed: 21.2 ml/m2 LVLd ap4: 7.5 cm LAV(MOD-sp2): 41.8 ml EDV(MOD-sp4): 61.4 ml LAV(MOD-sp4): 29.3 ml EDV(sp4-el): 63.6 ml LVAs ap4: 13.5 cm2 LVLs ap4: 6.8 cm ESV(MOD-sp4): 22.3 ml ESV(sp4-el): 23.0 ml EF(MOD-sp4): 63.7 % EF(sp4-el): 63.9 % SV(sp4-el): 40.6 ml LA A4 area: 14.1 cm2 RA A4 area: 12.7 cm2 TAPSE: 2.0 cm Time Measurements MV dec time: 0.19 sec Doppler Measurements & Calculations MV E max mohinder: 105.5 cm/sec Lat Peak E' Mohinder: 9.0 cm/sec Med Peak E' Mohinder: 8.9 cm/sec MV A max omhinder: 67.4 cm/sec E/E' lat: 11.7 E/E' med: 11.8 MV E/A: 1.6 MV V2 max: 131.6 cm/sec MV P1/2t max mohinder: 132.6 cm/sec Ao V2 max: 122.4 cm/sec MV max P.9 mmHg MV P1/2t: 75.9 msec Ao max P.0 mmHg MV V2 mean: 60.2 cm/sec MV dec slope: 511.9 cm/sec2 Ao V2 mean: 83.3 cm/sec MV mean P.8 mmHg Ao mean P.2 mmHg MV V2 VTI: 43.2 cm MVA(P1/2t): 2.9 cm2 Ao V2 VTI: 27.5 cm AV (velocity ratio): 0.96 LV V1 max: 114.1 cm/sec MR max mohinder: 559.1 cm/sec PA V2 max: 64.3 cm/sec LV V1 max P.2 mmHg MR max P.0 mmHg LV V1 mean P.7 mmHg LV V1 mean: 77.2 cm/sec LV V1 VTI: 26.2 cm TR max mohinder: 232.2 cm/sec TR max P.6 mmHg ECHO/Echo Complete Interpretation Summary Normal LV size. Left ventricular systolic function is normal. The left ventricular ejection fraction is 60 %. Stage 2 diastolic dysfunction. Pulmonary artery systolic pressure is 25 mmHg. Ordering Physician: Chris Sam Referring Physician: Buffy Wong Performed By: Juan Ann RCS
--- NOTE | 2023-10-22 09:56 | STRESSREP ---
Stress Test Report Exercise myocardial perfusion stress test. 73-year-old lady with a history of chest pain Stress protocol: Resting EKG demonstrates sinus bradycardia with a rate of 55 bpm resting blood pressure is 122/68 mmHg. The patient exercised according to the regular Jey protocol for a total duration of 6 minutes attaining a maximum heart rate of 129 bpm which was 88% of maximum predicted heart rate; the maximum workload was 7 metabolic equivalents. At rest there were no ST or T wave changes noted to suggest ischemia and at peak exercise upsloping ST changes only were noted which did not meet the criteria for ischemia. No clinical angina was noted the test was terminated due to the target heart rate being achieved/fatigue. The peak blood pressure was 162/74 mmHg. Rate-pressure product was 20,400. Myocardial perfusion protocol. 11.8 mCi of technetium 99m sestamibi was injected at rest. The patient exercised according to regular Jey protocol for total duration of 6 minutes and at peak exercise 33.1 mCi of technetium 99m sestamibi was injected stress images were obtained stress and rest images were reconstructed in comparing the short axis vertical long and horizontal long axis. Gated images were also obtained. Perfusion SPECT analysis: Review of the stress images demonstrate normal uptake of tracer noted in all areas of the myocardium. The resting images similarly demonstrate normal uptake of tracer noted in all areas of the myocardium. No areas of reversibility are noted to suggest ischemia no previous infarct was noted. Gated SPECT analysis: The gated ejection fraction is 86%. Conclusion: Normal exercise myocardial perfusion stress test at a moderate workload Preserved ejection fraction.
== END | disposition home or self-care (01) ==
LOC: CVS 06:56
PROVIDERS: PCP Family Medicine; Referring Provider Internal Medicine Cardiovascular Disease; Visit Provider Internal Medicine Cardiovascular Disease
DX: R01.1 Cardiac murmur, unspecified (principal); R07.9 Chest pain, unspecified
CPT/HCPCS: 78452; 93017; 93306; A9500

== ENCOUNTER → 2024-02-04 | Outpatient (CLI) | payer MEDICARE, OTHER, SELFPAY ==
--- NOTE | 2024-02-04 09:02 | RAD_ITS ---
STUDY: X-RAY CHEST REASON FOR EXAM: Female, 73 years old. COUGH TECHNIQUE: PA and lateral views of the chest. COMPARISON: 08/06/2018 FINDINGS: Right-sided ventriculoperitoneal shunt catheter. The lungs are clear and expanded. There is no demonstrated pleural abnormality. Normal size heart. Normal mediastinum and celestina. Normal visualized pulmonary arteries. Normal visualized aortic arch and descending thoracic aorta. Normal visualized thoracic spine. Normal visualized ribs, clavicles, and shoulders. There is no demonstrated abnormality of the visualized soft tissue structures of the upper abdomen. RAD/Chest PA and Lateral IMPRESSION: No active disease. Electronically Signed: Remington Bland MD at 14:42 EDT ,
[2024-02-04 11:05] LABS: Absolute Lymphocyte Count 4.15 X10^3/uL (0.83-4.51); Absolute Neutrophil Count 9.6 X10^3/uL (2.0-7.7); Basophil# 0.12 X10^3/uL; Basophil% 0.7 % (0-1); Eosinophil# 0.45 X10^3/uL; Eosinophils% 2.8 % (0-5); Hematocrit 41.3 % (37-47); Hemoglobin 12.9 g/dL (12.0-15.0); Lymphocyte # 4.15 X10^3/ul (0.83-4.51); Lymphocyte % 25.7 % (19-41); Mean Corp Hgb Conc 31.2 g/dL (32-36); Mean Corpuscular Hgb 29.1 pg (27.0-32.0); Mean Corpuscular Volume 93.2 fL (81-99); Mean Platelet Vol. 9.3 fl (6.2-12.0); Monocyte# 1.77 X10^3/uL; Monocyte% 10.9 % (0-10); NRBC Flagged by Analyzer 0 % (0-5); Neutrophil # 9.63 X10^3/uL (2.7-7.7); Neutrophil % 59.6 % (47-70); POSITIVE COUNT YES; POSITIVE DIFFERENTIAL YES; RBC Distribution Width CV 15.9 % (11.6-14.6); RBC Distribution Width SD 54.6 fl (35.1-43.9); Red Blood Count 4.43 M/mm3 (4.2-5.4); White Blood Count 16.2 K/mm3 (4.4-11.0)
[2024-02-04 11:09] LABS: Differential Indicated SCAN CRITERIA MET
[2024-02-04 11:11] LABS: Platelet Count 794 K/mm3 (150-450)
[2024-02-04 11:35] LABS: Potassium 4.3 mmol/L (3.5-5.1)
[2024-02-04 12:27] LABS: Differential Comment SCANNED; Platelet Estimate MKD INC (ADEQ); Platelet Morphology LARGE
[2024-02-04 12:28] LABS: Burr Cells RARE
[2024-02-04 12:29] LABS: Acanthocytes RARE; Anisocytosis 1+; Target Cells 1+
[2024-02-05 14:42] LABS: Pathologist Review Reviewed
== END | disposition home or self-care (01) ==
PROVIDERS: PCP Family Medicine; Referring Provider Family Medicine; Visit Provider Family Medicine
DX: R05.9 Cough, unspecified (principal); I10 Essential (primary) hypertension; R53.83 Other fatigue
CPT/HCPCS: 36415; 71046; 84132; 85025

== ENCOUNTER → 2024-10-16 | Outpatient (CLI) | payer MEDICARE, OTHER, SELFPAY ==
--- NOTE | 2024-10-16 08:04 | BD_ITS ---
PROCEDURE: DEXA BONE DENSITY STUDY 10/16/2024 REASON FOR EXAM: F, age 74 y/o . Postmenopausal. TECHNIQUE: DEXA BONE DENSITY STUDY COMPARISON: Prior study dated July 31, 2017. FINDINGS: BMD and T-SCORES Lumbar spine: 0.803 g/cm2, T-score 2.2 Levels: L1 through L4 Change from prior: Loss of 9.8%. Left femoral neck: 0.551 g/cm2, T-score -2.7 Femoral neck comparison data not recommended for monitoring change. Left total hip: 0.724 g/cm2, T-score -1.8 Change from prior: Loss of 10.1%. Right femoral neck: 0.563 g/cm2, T-score -2.6 Femoral neck comparison data not recommended for monitoring change. Right total hip: 0.754 g/cm2, T-score -1.5 Change from prior: Loss of 9%. The World Health Organization has defined the following categories based on bone density: Normal bone density: T-score equal to or greater than -1.0 Osteopenia: T-score between -1.0 and -2.5 Osteoporosis: T-score equal to or less than -2.5 The patient does meet the pharmacological treatment recommendations for prevention of osteoporosis. BD/Dexa Bone Density Study IMPRESSION: OSTEOPOROSIS. Recommend follow-up as clinically warranted. Reading Location: [id number]
--- NOTE | 2024-10-16 08:04 | BI_ITS ---
EXAM: SCRN MAMM (CAD)W/FRANCIS BILAT DATE: 10/16/2024 CLINICAL HISTORY: F, Age 74 y/o , SCREENING Sister with breast cancer. Grandmother with breast cancer. TECHNIQUE: SCRN MAMM (CAD)W/FRANCIS BILAT COMPARISON: Prior exam(s) dated October 05, 2023.. FINDINGS: TISSUE DENSITY: The breasts are heterogeneously dense, which may obscure small masses. Bilateral Breast Mammographic Findings: No significant masses, calcifications or other abnormalities are identified. Stable bilateral fat containing axillary lymph nodes. No suspicious masses, areas of developing architectural distortion, or suspicious calcifications. There has been no significant interval change. BI/SCRN MAMM (CAD)W/FRANCIS BILAT IMPRESSION: Stable examination. OVERALL FINAL ASSESSMENT BI-RADS 2: BENIGN RECOMMEND ANNUAL MAMMOGRAPHIC SCREENING. RECOMMENDATION: Routine annual follow-up in 1 Year A letter with findings and recommendations will be mailed to the patient. Reading Location: [id number]
== END | disposition home or self-care (01) ==
LOC: OPBD 08:02
PROVIDERS: PCP Family Medicine; Referring Provider Family Medicine; Visit Provider Family Medicine
DX: Z12.31 Encounter for screening mammogram for malignant neoplasm of breast (principal); Z13.820 Encounter for screening for osteoporosis; M81.0 Age-related osteoporosis without current pathological fracture
CPT/HCPCS: 77063; 77067; 77080

== ENCOUNTER → 2025-02-06 | Outpatient (CLI) | payer MEDICARE, OTHER, SELFPAY ==
[2025-02-06 10:17] LABS: Hematocrit 45.1 % (37-47); Hemoglobin 14.3 g/dL (12.0-15.0); Immature Granulocytes Count 0.040 X10^3/uL (0.0-0.0); Mean Corp Hgb Conc 31.7 g/dL (32-36); Mean Corpuscular Volume 92.4 fL (81-99); Mean Platelet Vol. 9.5 fl (6.2-12.0); NRBC Flagged by Analyzer 0 % (0-5); POSITIVE COUNT YES; Platelet Count 932 K/mm3 (150-450); RBC Distribution Width CV 15.0 % (11.6-14.6); RBC Distribution Width SD 51.4 fl (35.1-43.9); Red Blood Count 4.88 M/mm3 (4.2-5.4); White Blood Count 12.5 K/mm3 (4.4-11.0)
[2025-02-06 10:28] LABS: Differential Indicated SCAN CRITERIA MET
[2025-02-06 10:53] LABS: AST(SGOT) 23 U/L (<=31); Alanine Aminotransfer ALT/SGPT 10 U/L (<=34); Albumin, Serum 4.1 g/dL (3.4-4.8); Alkaline Phosphatase 78 U/L (35-104); Anion Gap 10 (5-15); BUN 12 mg/dL (4-19); BUN/Creat Ratio 16.5 RATIO (10-20); Calcium,Total 9.6 mg/dL (7.6-11.0); Carbon Dioxide 28.9 mmol/L (21.0-32.0); Chloride 102 mmol/L (98-108); Cholesterol 217 mg/dL (<=200); Globulin 3.3 g/dL (2.2-4.2); Glucose 92 mg/dL (70-99); Low Density Lipoprotein Calc. 131 mg/dL; Potassium 4.3 mmol/L (3.3-5.1); Triglycerides 97 mg/dL; Very Low Density Lipoprotein 19 mg/dL (5-40); Vitamin D,25 Hydroxy 72.2 ng/mL (30-100); cholesterol:hdl ratio screen 3.27
== END | disposition home or self-care (01) ==
LOC: MTLAB 08:01
PROVIDERS: PCP Family Medicine; Referring Provider Family Medicine; Visit Provider Family Medicine
DX: M81.0 Age-related osteoporosis without current pathological fracture (principal); D75.838 Other thrombocytosis; Z90.81 Acquired absence of spleen; E78.5 Hyperlipidemia, unspecified
CPT/HCPCS: 36415; 80053; 80061; 82306; 85025